=== PATIENT | male | born 1945 | race African-American/Black ===

== ENCOUNTER 2018-04-17 09:53 | Outpatient (CLI) | payer MEDICARE, BC ==
[2018-04-17] MEDS ORDERED: ISOVUE-370 76%-LOCM 1 ML ONE (13:53)
== END 2018-04-17 09:54 | disposition home or self-care (01) ==
LOC: BICCT 09:53
PROVIDERS: ATTEND Internal Medicine Gastroenterology
DX: K70.30 Alcoholic cirrhosis of liver without ascites (principal); K86.3 Pseudocyst of pancreas; R19.7 Diarrhea, unspecified; R06.6 Hiccough; R63.4 Abnormal weight loss; K86.2 Cyst of pancreas; I72.3 Aneurysm of iliac artery; I70.0 Atherosclerosis of aorta; I25.10 Atherosclerotic heart disease of native coronary artery without angina pectoris
CPT/HCPCS: 71260; 74177; 82565

== ENCOUNTER 2018-05-28 15:44 | Inpatient (IN) | payer MEDICARE, BC ==
[2018-05-28 16:23] LABS: #Lymphocytes 1.5 thou/uL (1.20-3.40); #Monocytes 1.5 thou/uL (0.11-0.59); #Neutrophils 8.4 thou/uL (1.40-6.50); %Basophils 0.1 % (0.0-1.0); %Eosinophils 0.3 % (0.0-10.0); %Lymphocytes 13.3 % (21.0-51.0); %Monocytes 13.3 % (0.0-10.0); %Neutrophils 72.9 % (42.0-75.0); Mean Corpuscular HGB CONC 31.4 g/dL (32.0-36.0); Mean Corpuscular Hemoglobin 32.1 pg (27.0-31.0); Platelet Count 358 thou/uL (130-400); RBC Distribution Width 11.5 % (11.5-14.5); Red Blood Cell (RBC) Count 3.12 mill/uL (4.70-6.10); White Blood Cell (WBC) Count 11.5 thou/uL (4.8-10.8)
[2018-05-28] MEDS ORDERED: Pantoprazole 40 MG VIAL ONE (16:25)
[2018-05-28 16:40] LABS: PTT 35.3 SEC (22.9-36.1); Prothrombin Time 12.9 SEC (12.0-14.7)
[2018-05-28 16:47] LABS: ALT (SGPT) 7 U/L (8-55); AST (SGOT) 13 U/L (5-34); Albumin 2.7 g/dL (3.4-4.8); Alkaline Phosphatase 214 U/L (40-150); Anion Gap 11 mmol/L (10-20); BUN (Urea Nitrogen) 26 mg/dL (8.4-25.7); Bilirubin, Total 0.5 mg/dL (0.2-1.2); CK (CPK) 23 U/L (30-200); Calc. Creatinine Clearance 0 mL/min (70-130); Calcium 9.7 mg/dL (7.8-10.44); Carbon Dioxide 24 mmol/L (23-31); Chloride 97 mmol/L (98-107); Estimated GFR-MDRD 57; Globulin 4.2 g/dL (2.4-3.5); Glucose 143 mg/dL (83-110); Lipase 19 U/L (8-78); Potassium 4.4 mmol/L (3.5-5.1); Protein, Total 6.9 g/dL (5.8-8.1); Sodium 128 mmol/L (136-145)
[2018-05-28 16:50] LABS: CKMB 0.8 ng/mL (0-6.6)
[2018-05-28 16:54] LABS: Troponin I 0.706 ng/mL (< 0.028)
[2018-05-28] MEDS ORDERED: Sodium Chloride 0.9% 100 ML ONE (17:36)
[2018-05-28] MEDS ORDERED: Piperacillin/Tazobactam 4.5 GM VIAL ONE (17:36)
--- NOTE | 2018-05-28 18:11 | RAD ---
PORTABLE CHEST ONE VIEW: 05/28/2018 3:57 p.m. HISTORY: Weakness. GI bleed. COMPARISON: 07/18/2017 FINDINGS: The heart size is normal. The aorta is tortuous. Evidence of old granulomatous disease again seen. The lungs are well expanded without lobar consolidation, pneumothoraces, or pleural effusions. IMPRESSION: No radiographic evidence of acute cardiopulmonary process. POS: [facility]
[2018-05-28] MEDS ORDERED: Pantoprazole 80 MG in Sodium Chloride 0.9% 100 ML IVP SCH (18:15)
[2018-05-28] MEDS ORDERED: Acetaminophen 650 MG Suppository PR PRN (18:38)
[2018-05-28] MEDS ORDERED: Nitroglycerin 0.4 MG TAB (25 Tab Bottle) PO PRN (18:38)
[2018-05-28] MEDS ORDERED: Acetaminophen 325 MG TAB PO PRN (18:38)
--- NOTE | 2018-05-28 18:47 | HP ---
PRIMARY CARE PROVIDER: Chrystal Cano M.D. CHIEF COMPLAINT: Generalized weakness. HISTORY OF PRESENT ILLNESS: Mr. Mcgill is a pleasant 72-year-old gentleman who was seen at [facility] on 05/28/2018. He is able to provide some history. His is in the emerge ncy room and is able to provide some collateral history. Over the last week, he has been having progressively worsening generalized weakness. He also reporte dly had black stools over the last week. He refused to go to the emergency room. Today, he finally agreed to see his primary care provider. He was sent to the emergency room from primary care provide r's office. He reports nausea. He denies any abdominal pain. He denies any chest pain. He denies any shortness of breath. REVIEW OF SYSTEMS: All other systems reviewed and found to be negative. PAST MEDICAL HISTORY: Atrial fibrillation, diabetes mellitus, coronary artery disease, COPD, emphyse ma, hypertension, dyslipidemia, depression, hypothyroidism, benign prostate hypertrophy and PCI with stents. He also had a 5 mm nodule in the right lower lobe on CT scan done in 12/2013. PAST SURGICAL HISTORY: PCI with stents and fluid drained from the scrotum. PSYCHIATRIC HISTORY: Anxiety. SOCIAL HISTORY: The patient drinks 1-2 alcoholic drinks a day. He smokes 1-1/2 packs of cigarettes a day. He denies any recreational drug use. ALLERGIES: No known drug allergies. CURRENT MEDICATIONS: Albuterol 2 puffs every 6 hours as needed, amlodipine 2.5 mg daily, atorvastati n 10 mg at bedtime, vitamin B12 500 mcg daily, diclofenac topically every 6 hours as needed, folic ac id 1 mg daily, lisinopril 10 mg daily, magnesium oxide 400 mg 2 times a day, metoprolol tartrate 50 m g 2 times a day, mirtazapine 30 mg at bedtime, pantoprazole 40 mg in the morning, potassium chloride 20 mEq daily, baclofen 10 mg 3 times a day and multivitamins 1 tablet daily. He also takes aspirin 8 1 mg daily. FAMILY HISTORY: His mother of stroke. Father at the age of 97 years from natural causes. CODE STATUS: I discussed his code status. He is FULL CODE. His is the surrogate decision make r. PHYSICAL EXAMINATION: GENERAL: Mr. Mcgill is sleepy, but arousable, not in acute distress. VITAL SIGNS: Blood pressure is 149/88, pulse 96, respiratory rate 23, and oxygen saturation 95% on r oom air. He is afebrile. EYES: No scleral icterus. No conjunctival pallor. ENT: Dry mucosal membranes, no oropharyngeal erythema or exudates. NECK: Supple, nontender, trachea is midline. RESPIRATORY: Accessory muscles of breathing are not active. Chest wall movements are symmetric bila terally. LUNGS: Clear to auscultation without wheeze, rhonchi or crepitations. CARDIOVASCULAR: S1 and S2 are heard, regular. Peripheral pulses palpable. No carotid bruit, no per icardial rub. ABDOMEN: Soft, nontender, bowel sounds are heard, no hepatomegaly, no splenomegaly. NEUROLOGIC: Cranial nerves II-XII intact. SKIN: No rashes or subcutaneous nodules. MUSCULOSKELETAL: Power is 5/5 in all 4 extremities. LYMPHATIC: No cervical lymphadenopathy. PSYCHIATRIC: Normal mood, normal affect, the patient is oriented to person, place, and time. LABORATORY DATA: Ms. Mcgill's labs and investigations were reviewed. I reviewed his electrocardiogram , which shows normal sinus rhythm, no ST changes to suggest an acute coronary syndrome. I also revie wed his chest x-ray, which does not show any pulmonary infiltrates. He has leukocytosis with 11,500 white cells, of which 72% are neutrophils, macrocytic anemia with hemoglobin of 10, last known hemogl obin 8.8 on 06/30/2016, INR 1.0, decreased sodium of 128, normal potassium, elevated blood urea nitro gen of 26, elevated creatinine of 1.47, last known creatinine 1.39 on 06/30/2016, elevated lactic aci d level of 2.8, normal total bilirubin, elevated alkaline phosphatase level of 214, last known alkali ne phosphatase level 220 in 10/2015, elevated troponin I of 0.706 and decreased albumin of 2.7. Lipa se is normal. ASSESSMENT AND PLAN: Mr. Mcgill is a pleasant 72-year-old gentleman who was seen at [facility] on 05/28/2018. His problem list includes: 1. Generalized weakness: Most likely secondary to gastrointestinal blood loss. 2. Upper gastrointestinal bleed. The patient will be admitted to the hospital and started on IV PPI . Gastroenterology service is being consulted by emergency room physician. We will monitor his H&H and transfuse as needed. 3. Elevated troponin: The patient denies any chest pain. Troponin elevation is most likely seconda ry to demand ischemia. Cardiology service is being consulted. We will recheck troponin. The patien t is not receiving anticoagulation because of ongoing gastrointestinal bleed. 4. Hyponatremia: Mild, we will recheck. 5. Chronic kidney disease: Appears to be stable. 6. Dehydration: The patient is clinically dehydrated. We will provide intravenous hydration. 7. Tobacco abuse: The patient has been counseled regarding tobacco cessation. We will start him on nicotine replacement therapy. 8. Hypertension: We will monitor vital signs and titrate antihypertensives as needed. 9. Dyslipidemia: Continue statin. Many thanks for allowing me to participate in your patient's care. Please feel free to contact me wi th any questions or concerns. LEVEL OF RISK: High. LEVEL OF COMPLEXITY: High.
[2018-05-28 19:11] LABS: Bilirubin Negative (Negative); Blood, Urine Negative (Negative); Clarity CLEAR (Clear); Glucose, Urine (Dipstick) Negative (Negative); Leukocyte Large (Negative); Nitrite Negative (Negative); Protein, Urine (Dipstick) Negative (Neg-Trace); Specific Gravity, Urine 1.006 (1.002-1.036); Urobilinogen 0.2 mg/dL (0.2-1.0)
[2018-05-28 19:13] LABS: Bacteria/HPF None Seen HPF (None Seen); Hyaline Casts/LPF 0-3 HYALINE CAST LPF (0-3 Hyaline); Pathc Cast-AUWi Flag 0.29 (0-2.49); RBC/HPF 0-3 HPF (0-3); Squamous Epithelial 0-3 HPF (0-3)
[2018-05-28 19:26] LABS: Transitional Epithelial 0-3 HPF (0-3)
[2018-05-28 19:52] LABS: Hemoglobin 10.1 g/dL (14.0-18.0)
[2018-05-28 21:19] LABS: Lactic Acid 1.5 mmol/L (0.5-2.2)
[2018-05-28 21:28] LABS: Troponin I Less than 0.010 ng/mL (< 0.028)
[2018-05-28] MEDS: Sodium Chloride 0.9% 1,000 ML IV SCH (22:31)
[2018-05-28] MEDS: Nicotine 21 MG PATCH TD SCH (22:32)
[2018-05-28 22:46] VITALS: BMI 17.4
--- NOTE | 2018-05-29 01:48 | CON ---
DATE OF CONSULTATION: 05/31/2018 REASON FOR CONSULTATION: Melena. HISTORY OF PRESENT ILLNESS: Mr. Mcgill is a 72-year-old gentleman, who is seeing Dr. Peralta in the offic e on and off for several years. He had his last colonoscopy in 2009, which was normal. He had an EG D in 2015 at the [facility] for hematemesis and he had severe LA grade D esophagi tis with biopsies showing just acute inflammation. More recently in 03/2016, followed up in the offi ce and it was noted that he had a CT with possible pancreatic pseudocyst. Apparently, he had really cut back on drinking at that time. More recently in April of this year, he was seen by Dr. Peralta wit h regard to weight loss of 9 pounds in 11 months. He reported loss of appetite. He was still taking baclofen for hiccups and which really helped that. He was moving bowel movements every 1-2 days, wh ich were loose and he was taking a lot of magnesium oxide, he was drinking bourbon daily still. At t hat time, he had a CT scan ordered abdomen and pelvis and chest, which showed 2-cm pancreatic cystic structure, which was felt to be a pseudocyst in the tail of pancreas region. Dr. Peralta discussed all with the patient and his and they are still going to follow up in a few more months. In any brianda nt, this hospitalization has brought in by the fact that he had to the emergency room just feeling we ak, generally had been having black stools over the past week. He continued to really not be able to eat with some similar complaints when we had him in the office back in April, but he refused to go to the emergency room today. Finally, the states he agreed to see his primary doctor, Dr. Jerome cotto nd from there, he was sent to the emergency room. He reports some nausea, but no vomiting, no hemate mesis, no abdominal pain, no chest pain or shortness of breath, just fairly listless and does want to eat. He has had no diarrhea. He denies any fever or chills. His confirms most history. When asked about drinking, she states he really does not drink much anymore, but apparently on further qu estioning, that is ended up being 1-2 bourbons a day, still smokes a pack to a pack and half a day. REVIEW OF SYSTEMS: Positive for weight loss. Positive for loss of appetite. Positive for melena. Negative for hematochezia. Negative for hematemesis. Negative for nausea. Positive history of hicc ups. PAST MEDICAL HISTORY: Atrial fibrillation, diabetes, coronary artery disease with previous balloon a ngioplasty with no stents, COPD, emphysema, hypertension, dyslipidemia, depression, hypothyroidism, B PH, 5-mm nodule in the right lower lung field in 2013 and apparently this was followed. PAST SURGICAL HISTORY: Includes PCI with stents and previously he had some scrotal surgery. SOCIAL HISTORY: The patient drinks 1-2 drinks per week, smokes as noted above. Does not use drugs. ALLERGIES: None known. MEDICATIONS: Albuterol, amlodipine, atorvastatin, vitamin B12, diclofenac topical, folic acid, lisin opril, magnesium oxide 2 a day, metoprolol, mirtazapine, Protonix 40 mg daily, Protonix, potassium ch loride 20 mEq daily, baclofen, multivitamin, and aspirin 81 mg a day. FAMILY HISTORY: Mother of stroke. Father at age 97 from natural causes. He has been seen by the hospitalist and he has been started on normal saline at 70 an hour, Protonix drip has been ordered. Echo has been ordered. EKG has been ordered. PHYSICAL EXAMINATION: GENERAL: The patient is cachectic 72-year-old man. He is in the emergency room. He is poorly pe[place] shed and cachectic, but he is in no distress. VITAL SIGNS: Blood pressure 149/88, pulse 96, respiration 23, O2 sat 95% on room air. HEENT: He is nonicteric. LUNGS: Decreased breath sounds in the bases. Chest movement symmetrical. No wheezes. HEART: Regular rate and rhythm. ABDOMEN: Soft, nontender, slightly doughy. No palpable hepatosplenomegaly. Possibly some fluid wav e. No shifting dullness. LYMPHATICS: No cervical or supraclavicular adenopathy. EXTREMITIES: No muscle wasting. LABORATORY STUDIES: Stool occult blood positive. Hemoglobin is 10; it was 8.82 in 2016. Labs from the [facility] in 02/2018 showed normal LFTs except for an AST of 46, alkaline phosphatase of 193 and hemoglo bin is 14 with an MCV of 101 at that time. Hemoglobin is now 10, white count 11.5, platelet count 35 8. INR 1. Sodium 128, potassium 4.4, BUN 26, creatinine 1.47, glucose 143. Lactic acid 2.8, calciu m 9.7, AST 13, ALT 7, alkaline phosphatase 214. Troponin 0.706. Albumin 2.7, protein 6.9. Last alp morrison-fetoprotein was 2.3 in 2016. CA19-9 of 405 in 2016. ASSESSMENT: This is a 72-year-old gentleman with some history of liver disease, possible cirrhosis b y clinic notes, who has been in the hospital floor in 2016 was severe reflux esophagitis. He i s on PPIs and is coming more recently with weight loss and failure to thrive. He had a CT scan of chest and abdomen in the office in April, which showed a 2-cm cystic structure in the tail of the pancreas and was felt to be pseudocyst and is being followed clinically. Otherwise, there were no si gnificant findings atherosclerotic vessel disease. Now, he comes in with report of melena and a hemoglobin of 10. Baseline in the summer had been 14,. His liver enzymes are fairly stable. He s hows no signs of acute bleeding, but has a positive occult blood test. He did have a normal colonosc opy in 2009. RECOMMENDATIONS: 1. Agree with IV PPI and IV fluids. 2. N.p.o. 3. Consent for EGD and will plan for EGD tomorrow.
[2018-05-29 05:49] LABS: Lactic Acid 0.7 mmol/L (0.5-2.2)
[2018-05-29 05:53] LABS: Anion Gap 10 mmol/L (10-20); BUN (Urea Nitrogen) 20 mg/dL (8.4-25.7); Calc. Creatinine Clearance 55 mL/min (70-130); Calcium 8.7 mg/dL (7.8-10.44); Carbon Dioxide 20 mmol/L (23-31); Chloride 106 mmol/L (98-107); Estimated GFR-MDRD 83; Glucose 95 mg/dL (83-110); Potassium 4.2 mmol/L (3.5-5.1); Sodium 132 mmol/L (136-145)
[2018-05-29 06:08] LABS: Band 3 % (5-11); Hemoglobin 8.3 g/dL (14.0-18.0); Lymphocytes 11 % (21-51); MDiff Complete? YES; Mean Corpuscular Hemoglobin 33.8 pg (27.0-31.0); Mean Platelet Volume 7.4 fL (7.4-10.4); Monocytes 12 % (0-10); Neutrophil 74 % (42-75); PLT Morphology Comment Appears Adequate; Platelet Count 337 thou/uL (130-400); RBC Distribution Width 11.2 % (11.5-14.5); Red Blood Cell (RBC) Count 2.45 mill/uL (4.70-6.10); White Blood Cell (WBC) Count 11.3 thou/uL (4.8-10.8)
[2018-05-29] MEDS: Pantoprazole 80 MG in Sodium Chloride 0.9% 100 ML IVP SCH ×2 (08:26→17:11)
[2018-05-29] MEDS ORDERED: Promethazine HCl 25 MG/ML VIAL IM PRN (10:20)
[2018-05-29] MEDS ORDERED: Ondansetron HCl/PF 4 MG/2 ML Vial IVP PRN (10:20)
[2018-05-29] MEDS ORDERED: Promethazine HCl 25 MG/ML VIAL SLOW IVP PRN (10:20)
--- NOTE | 2018-05-29 11:04 | OP ---
DATE OF PROCEDURE: 05/29/2018. PROCEDURE PERFORMED: Esophagogastroduodenoscopy with control of hemorrhage. INDICATION FOR PROCEDURE: Anemia, melena. DESCRIPTION OF PROCEDURE: After the risks and benefits of the procedure were explained to the patien t including risk of bleeding, infection, perforation, reactions to anesthesia, aspiration and/or pain , informed consent was obtained. The patient was then taken to the endoscopy suite where deep sedati on was administered via propofol and anesthesia support. Once adequate sedation was achieved, the st andard gastroscope was introduced into the mouth with intubation of the esophagus, stomach and the pr oximal small intestine with the findings listed below. The patient tolerated the procedure well with no immediate perioperative complications. FINDINGS: Esophagus: Normal appearing mucosa was seen in the proximal esophagus; however, circumferential ulce ration and increased friability with oozing of blood was seen in the mid and distal esophagus extendi ng from 30 cm to 39 cm past the incisors. There was no evidence of mass lesions in this particular r egion, nor was there evidence of stricture or stenoses in the distal esophagus. The diaphragmatic pi nch was well seen at 42 cm while the GE junction was seen at 39 cm, denoting a 3 cm hiatal hernia. Stomach: Normal appearing mucosa was seen in the gastric cardia, body, antrum, incisura and greater curvature. Mild nodularity to the gastric mucosa was seen in the fundus without any evidence of poly poid features or overt mass formation. There was no evidence of erosions, ulcerations, mass lesions or active/recent bleeding seen throughout the entire stomach. Duodenum: A 7-8 mm superficial ulceration with an adherent clot was seen in the duodenal bulb along the anterior wall without any evidence of active bleeding; however, given the adherent clot and that I was unable to remove with aggressive irrigation and suctioning, bipolar cautery was applied to this region with good hemostasis achieved. There was no evidence of bleeding at the completion of this m aneuver. There was also another smaller more clean based ulceration seen further in the duodenal bul b, near the duodenal sweep, but did not exhibit any cratering or high risk stigmata of bleeding. Nor mal appearing mucosa was then seen in the second portion of the duodenum with mild erosions in the du odenal sweep, but no overt ulcerations seen there. There was no evidence of mass lesions or active/r ecent bleeding seen during this portion of the exam. IMPRESSION: 1. LA grade D reflux mediated erosive esophagitis (severe) extending from 30-39 cm with significant ulceration. 2. A 3 cm hiatal hernia, which could contribute to #1. 3. Mild nodularity of the gastric fundus consistent with PPI use. 4. A 7-8 mm duodenal bulb ulceration with adherent clot, status post bipolar cautery with good hemos tasis achieved. 5. Smaller 3-4 mm clean based ulceration also seen in the duodenal bulb without any high risk stigma ta (not intervened upon during this examination). RECOMMENDATIONS: 1. We would continue to trend H&H and transfuse as necessary to maintain an H&H of 03/24. 2. We would continue to monitor clinically for signs of active gastrointestinal bleeding. 3. We would continue the patient on PPI, but can be transferred to pantoprazole 40 mg b.i.d. 4. We would maintain strict antireflux precautions while inpatient. 5. Highly recommend cessation of alcohol as an outpatient. 6. We would consider holding the patient in the hospital for the next 48 hours given increased risk of gastrointestinal bleeding from the duodenal bulb ulceration. 7. We would refrain from administration of any NSAIDs during this admission. 8. We would obtain an H. pylori serology and treat if positive.
[2018-05-29] MEDS: Sodium Chloride 0.9% 1,000 ML IV SCH (11:57)
--- NOTE | 2018-05-29 13:07 | PQF ---
CLINICAL DOCUMENTATION IMPROVEMENT CLARIFICATION FORM: ICD-10 Updated PLEASE DO AN ADDENDUM TO THE PROGRESS NOTE WITH ANY DOCUMENTATION UPDATES OR ADDITIONS AND CARRY THROUGH TO DC SUMMARY. THANK YOU. Date: 05/29 ATTN: DR. DUKE LI Please exercise your independent, professional judgment in responding to the clarification form. Clinical indicators are provided on the bottom of this form for your review. Please check appropriate box(s): [ ] Protein Calorie Malnutrition: [ ] Mild [ x ] Moderate [ ] Severe [ ] Other Malnutrition (please specify) __ [ ] Underweight without malnutrition [ ] Cachexia [ ] Other diagnosis [ ] Unable to determine CLINICAL INDICATORS - SIGNS / SYMPTOMS / LABS BMI: 17.4 GI CONSULT DOCUMENTATION 05/28: HX PRESENT ILLNESS: ...IN APR OF THIS YEAR, HE WAS SEEN BY DR. PETERSON W/REGARD TO WEIGHT LOSS OF 9 LBS IN 11 MONTHS. HE REPORTED LOSS OF APPETITE. REVIEW OF SYSTEMS: POSTIVE FOR WEIGHT LOSS. POSITIVE FOR LOSS OF APPETITE. PHYSICAL EXAM: GENERAL: THE PATIENT IS CACHECTIC. HE IS POORLY NOURISHED ASSISTANT PROSECUTING ATTORNEY ASSESSMENT 05/29: TRIGGERED FOR LOW BMI, WEIGHT LOSS, DECREASED PO INTAKE; FAMILY STATED THE PATIENT HAS HAD POOR PO INTAKE X SEVERAL MONTHS. ...HE HAS LOST A LOT OF WEIGHT, BUT THEY WERE NOT SURE ABOUT THE QUANTITY OR TIMELINE. THEY REPORTED SEVERAL YEARS AGO, HE WEIGHTED 219 LBS & HAS STEADILY DROPPED DOWN TO HIS CURRENT WEIGHT. THEY THINK HE MAY HAVE WEIGHTED [address] WEIGHED PATIENT USING THE BEDSCALE & WEIGHT WAS NOTED TO 135.8 LBS APPROXIMATE 3.5% WEIGHT DEICER INSPECTOR PNEUMATIC THE PAST 6 MONTHS, 38% OVER AN UNKNOWN TIME PHYSICAL FINDINGS: MODERATE TEMPORAL MUSCLE WASTING OBSERVED NUTRITION DIAGNOSIS: MALNUTRITION R/T COPD & POSSIBLE CIRRHOSIS EVIDENCED BY DECREASED PO INTAKE FOR SEVERAL MONTHS W/MODERATE MUSCLE WASTING OBSERVED RISK FACTORS: ONGOING TOBACCO ABUSE DAILY ALCOHOL INTAKE DECREASED PO INTAKE FAILURE TO THRIVE TREATMENT: ASSISTANT PROSECUTING ATTORNEY ASSESSMENT GI CONSULT Moderate Malnutrition (in acute illness) Energy Intake: <75% of estimated energy requirement for > 7 days Weight Loss: 1-2%/1 week; 5%/ 1 month; 7.5%/3 months Other: mild body fat loss; mild muscle mass loss; mild fluid accumulation; Severe Malnutrition (in acute illness) Energy Intake: < 50% of estimated energy requirement for > 5 days Weight Loss: >1-2%/1 week; >5%/1 month; >7.5%/3 months Other: moderate body fat loss; moderate muscle mass loss; moderate- severe fluid accumulation; measurably reduced certified ophthalmic assistant strength Moderate Malnutrition (in chronic illness) Energy Intake: <75% of estimated energy requirement for >1 month Weight Loss: 5%/1 month; 7.5%/3 months; 10%/6 months; 20%/1 year Other: mild body fat loss; mild muscle mass loss; mild fluid accumulation Severe Malnutrition (in chronic illness) Energy Intake: <75% of estimated energy requirement for >1 month Weight Loss: >5%/1 month; >7.5%/3 months; >10%/6 months; >20%/1 year Other: severe body fat loss; severe muscle mass loss; severe fluid accumulation; measurably reduced certified ophthalmic assistant strength THANK YOU! Sindy (This form is maintained as a part of the permanent medical record) 2014 [employer]. All Rights Reserved Sindy Dhillon RN, BSN [email or web address] Office: [phone] [facility]
[2018-05-29] MEDS ORDERED: Lidocaine 1% PF 5 ML VIAL ONE (14:53)
[2018-05-29] MEDS ORDERED: PROPOFOL 200 MG/20 ML VIAL ONE (14:53)
--- NOTE | 2018-05-29 17:22 | PDOC.PN ---
- Subjective Encounter Start Date: 05/29/18 Encounter Start Time: 11:30 Subjective: pt up in bed family at bedside - Objective Resuscitation Status: Resuscitation Status FULL:Full Resuscitation Vital Signs & Weight: Vital Signs (12 hours) Temp Pulse Resp BP BP Pulse Ox 05/29/18 17:10 99.0 F 103 H 15 99/66 99 05/29/18 11:16 97.6 F 105 H 16 132/72 96 05/29/18 08:32 99.1 F 110 H 16 124/75 95 05/29/18 08:30 95 Weight Admit Weight 137 lb Weight 135 lb 12.8 oz I&O: 05/28/18 05/29/18 05/30/18 06:59 06:59 06:59 Intake Total 820 812.7 Output Total 470 300 Balance 350 512.7 Result Diagrams: 05/29/18 05:05 05/29/18 05:05 Additional Labs: Accuchecks 05/29/18 05:34 POC Glucose 112 H Phys Exam - Physical Examination Neck: no nodes, no JVD, supple, full ROM Respiratory: no wheezing, no rales, no rhonchi, wheezing present, clear to auscultation bilateral Cardiovascular: RRR, no significant murmur, no rub, gallop, irregular Gastrointestinal: soft, non-tender, no distention, positive bowel sounds Musculoskeletal: no edema, pulses present, edema present Dx/Plan (1) Melena Code(s): K92.1 - MELENA Status: Acute (2) Weight loss Status: Acute (3) Acute esophagitis Code(s): K20.9 - ESOPHAGITIS, UNSPECIFIED Status: Acute (4) Duodenal ulcer Status: Acute - Plan pt's hh stable, he wants to be a full code -: will get speech to see pt for concerns for aspiration pna -: will continue ppi * . Review of Systems - Review of Systems ENT: negative: Ear Pain, Ear Discharge, Nose Pain, Nose Discharge, Nose Congestion, Mouth Pain, Mouth Swelling, Throat Pain, Throat Swelling, Other Respiratory: negative: Cough, Dry, Shortness of Breath, Hemoptysis, SOB with Excertion, Pleuritic Pain, Sputum, Wheezing Cardiovascular: negative: chest pain, palpitations, orthopnea, paroxysmal nocturnal dyspnea, edema, light headedness, other Gastrointestinal: negative: Nausea, Vomiting, Abdominal Pain, Diarrhea, Constipation, Melena, Hematochezia, Other Genitourinary: negative: Dysuria, Frequency, Incontinence, Hematuria, Retention , Other - Medications/Allergies Allergies/Adverse Reactions: Allergies Allergy/AdvReac Type Severity Reaction Status Date / Time No Known Drug Allergies Allergy Verified 10/14/13 23:52 Medications: Current Medications Acetaminophen (Tylenol) 650 mg PO Q4H PRN PRN Reason: Headache/Fever or Pain Acetaminophen (Tylenol) 650 mg [place] Q4H PRN PRN Reason: Headache/Fever or Pain Atorvastatin Calcium (Lipitor) 10 mg PO HS JULIA Folic Acid (Folvite) 1 mg PO DAILY JULIA Sodium Chloride (Normal Saline 0.9%) 1,000 mls @ 70 mls/hr IV .[id number] [facility] Last Admin: 05/29/18 11:57 Dose: 1,000 mls Pantoprazole Sodium 80 mg/ (Sodium Chloride) 100 mls @ 10 mls/hr IVP INF [facility] Last Admin: 05/29/18 17:11 Dose: 100 mls Levothyroxine Sodium (Synthroid) 25 mcg PO 0600 JULIA Mirtazapine (Remeron Soltab) 30 mg PO HS [facility] Nicotine (Nicoderm Patch) 21 mg TD Q24HR [facility] Last Admin: 05/28/18 22:32 Dose: 21 mg Nitroglycerin (Nitrostat) 0.4 mg PO Q5MIN PRN PRN Reason: Chest Pain Sodium Chloride (Flush - Normal Saline) 10 ml IVF Q12HR [facility] Last Admin: 05/29/18 11:57 Dose: Not Given Sodium Chloride (Flush - Normal Saline) 10 ml IVF PRN PRN PRN Reason: Saline Flush
[2018-05-29 18:28] LABS: Hemoglobin 8.8 g/dL (14.0-18.0)
--- NOTE | 2018-05-29 18:35 | CON ---
DATE OF CONSULTATION: 05/29/2018 CARDIOLOGY CONSULTATION REASON FOR CONSULTATION: Elevated troponins. HISTORY OF PRESENT ILLNESS: Mr. Mcgill is a very pleasant 72-year-old gentleman who c omes to the hospital for melena. He was diagnosed with upper GI bleed and taken to the endoscopy lab where he was found to have an ulcer in the duodenum with stigmata of bleeding with a blood clot on t op of it. This was cauterized successfully. He has a history of liver disease with possible cirrhos is from alcohol use and has severe reflux esophagitis on chronic PPIs as well. He was admitted for t his and the troponins were drawn and initial troponin was 0.7. Second troponin was actually undetect able. Cardiology has been consulted for this. PAST MEDICAL HISTORY: 1. Coronary artery disease in the past. 2. Chronic obstructive pulmonary disease with emphysema. 3. History of a lung nodule. 4. Hypertension. 5. Type 2 diabetes. 6. Hyperlipidemia. 7. Depression. 8. Hypothyroidism. 9. BPH. 10. Left heart catheterization as far as I could tell was in [address] Amezcua. He had a 70% sten osis of the second diagonal and 50% LAD stenosis 21 years ago. Nonobstructive disease in the left ci rcumflex and RCA. Apparently, he might have had stents placed by Dr. Crawford more recently. PAST SURGICAL HISTORY: Catheterization as above. OUTPATIENT MEDICATIONS: 1. Potassium chloride 20 mEq a day. 2. Protonix 40 mg a day. 3. Multivitamin daily. 4. Remeron. 5. Metoprolol 50 mg b.i.d. 6. Magnesium oxide 400 mg b.i.d. 7. Lisinopril 10 mg a day. 8. Levothyroxine 25 mcg a day. 9. Folic acid 1 mg a day. 10. Diclofenac gel. 11. Vitamin B12. 12. Baclofen 10 mg p.o. t.i.d. 13. Atorvastatin 10 mg at bedtime. 14. Amlodipine 5 mg b.i.d. 15. Albuterol inhaler 90 mcg inhalation q.6. hours p.r.n. ALLERGIES: No known drug allergies. SOCIAL HISTORY: Smokes a pack a day, drinks everyday. [place] [employer]. No drug use. REVIEW OF SYSTEMS: A 12-point review of systems was done and is all negative unless stated in the hi story of present illness. FAMILY HISTORY: Mother of stroke. Father at age 99. PHYSICAL EXAMINATION: VITAL SIGNS: Temperature 99.0, pulse 103, respiration rate 15, satting 99% on room air, blood pressu re 99/66. GENERAL: Awake, alert, oriented x3, in no distress. HEENT: Normocephalic, atraumatic. NECK: Supple. LUNGS: Clear. CARDIOVASCULAR: S1, S2. No S3, S4. ABDOMEN: Soft, positive bowel sounds. EXTREMITIES: No edema. SKIN: Warm and dry. LABORATORY WORK: Reviewed. CBC with a white count of 11, hemoglobin from 10 down to 8.3, platelet c ount of 337,000. Coags were unremarkable. Chemistries were unremarkable except for a sodium of 132. Troponin as above was 0.7 and then undetectable. UA with large leukocyte esterase and 11-20 white cells, otherwise negative. Blood cultures were negative so far at one day. Stool cultures pending and urine culture is negative so far. Endoscopy reports were reviewed. ASSESSMENT: 1. Acute upper gastrointestinal bleed. 2. Non-ST elevation myocardial infarction: Likely demand ischemia from bleeding. Contraindicated t o do any anticoagulation at this time or any interventional procedures given his acute gastrointestin al bleed. 3. Alcohol use. 4. Possible liver cirrhosis. PLAN: 1. Continue conservative therapy. 2. Continue treatment of his GI bleeding as this is likely the cause of all his problems today. He is not having any ischemic symptoms. 3. No plan on any risk stratification with stress testing or heart catheterization. Contraindicated to do any anticoagulation at this time including aspirin. 4. We will do an echocardiogram. 5. We will follow.
[2018-05-29] MEDS: Diltiazem HCl 125 MG, Admixture Fee 1 EACH in Sodium Chloride 0.9% 100 ML IVPB SCH (20:35)
[2018-05-29] MEDS: Mirtazapine 30 MG Soltab PO SCH (21:58)
[2018-05-29] MEDS: Atorvastatin Calcium 10 MG TAB PO SCH (21:59)
[2018-05-29] MEDS: Nicotine 21 MG PATCH TD SCH (22:00)
[2018-05-30] MEDS: Sodium Chloride 0.9% 1,000 ML IV SCH (01:50)
[2018-05-30] MEDS: Pantoprazole 80 MG in Sodium Chloride 0.9% 100 ML IVP SCH (02:13)
[2018-05-30 06:17] LABS: Anion Gap 10 mmol/L (10-20); BUN (Urea Nitrogen) 13 mg/dL (8.4-25.7); Calc. Creatinine Clearance 61 mL/min (70-130); Calcium 8.6 mg/dL (7.8-10.44); Carbon Dioxide 21 mmol/L (23-31); Chloride 108 mmol/L (98-107); Estimated GFR-MDRD Greater than 90; Glucose 94 mg/dL (83-110); Potassium 3.5 mmol/L (3.5-5.1); Sodium 135 mmol/L (136-145)
[2018-05-30 06:31] LABS: Eosinophils 1 % (0-10); Hemoglobin 8.4 g/dL (14.0-18.0); Hypochromia SLIGHT = 6-15 cells (100X) (0-5/hpf); Lymphocytes 20 % (21-51); MDiff Complete? YES; Mean Corpuscular HGB CONC 32.9 g/dL (32.0-36.0); Mean Corpuscular Hemoglobin 33.8 pg (27.0-31.0); Monocytes 6 % (0-10); Neutrophil 73 % (42-75); PLT Morphology Comment Appears Adequate; Platelet Count 367 thou/uL (130-400); RBC Distribution Width 11.3 % (11.5-14.5); Red Blood Cell (RBC) Count 2.49 mill/uL (4.70-6.10); White Blood Cell (WBC) Count 8.3 thou/uL (4.8-10.8)
[2018-05-30] MEDS: Levothyroxine Sodium 25 MCG TAB PO SCH (07:10)
[2018-05-30] MEDS: Diltiazem HCl 125 MG, Admixture Fee 1 EACH in Sodium Chloride 0.9% 100 ML IVPB SCH (07:32)
[2018-05-30] MEDS: Folic Acid 1 MG TAB PO SCH (08:22)
[2018-05-30] MEDS ORDERED: PROVENTIL INHALER 6.7 G (200 INHALATIONS) INH PRN (10:45)
[2018-05-30] MEDS ORDERED: Metoprolol Tartrate 50 MG TAB PO SCH ×2 (12:00→21:00)
--- NOTE | 2018-05-30 15:18 | RAD ---
MODIFIED BARIUM SWALLOW IN PRESENCE OF SPEECH THERAPIST: Date: 05/30/18 HISTORY: 72-year-old male with dysphagia, unspecified; feeding difficulties; weight loss. FINDINGS/IMPRESSION: No aspiration, laryngeal penetration, or persistent pooling of contrast in the piriform sinuses or va llecula seen. Please see recommendations of the speech therapist for further management. Fluoro Time: 2 minutes, dose 0.789 Gy*cm^2. POS: [facility]
[2018-05-30] MEDS: Baclofen 10 MG TAB PO SCH ×2 (16:01→21:27)
--- NOTE | 2018-05-30 16:41 | EKG ---
Test Reason : Blood Pressure : / mmHG Vent. Rate : 145 BPM Atrial Rate : 127 BPM P-R Int : 000 ms QRS Dur : 066 ms QT Int : 262 ms P-R-T Axes : 000 -06 090 degrees QTc Int : 406 ms Atrial fibrillation with rapid ventricular response with premature ventricular or aberrantly conducte d complexes Low voltage QRS Nonspecific T wave abnormality Abnormal ECG When compared with ECG of 28-MAY-2018 15:52, (Unconfirmed) Atrial fibrillation has replaced Sinus rhythm Vent. rate has increased BY 54 BPM Criteria for Septal infarct are no longer Present Confirmed by KATTY CELESTIN, SReinaldo ([id number]) on 05/30/2018 4:41:18 PM Referred By: MENA Confirmed By:DR. Bernie ALANIZ MD
--- NOTE | 2018-05-30 18:22 | PDOC.CTH ---
Cardiology Progress Note - Subjective He went into rapid afib overnight. HR in the 140's Started on a Cardizem drip and converted to sinus. He did not feel this, he denies any chest pain, tightness, pressure, SOB. - Objective Vital Signs Temp Pulse Resp BP Pulse Ox 05/30/18 16:04 98 F 81 16 124/63 97 05/30/18 12:00 98.8 F 100 16 113/67 93 L 05/30/18 08:00 93 L 05/30/18 07:59 98 F 100 16 107/62 93 L Admit Weight 137 lb Weight 140 lb 05/29/18 05/30/18 05/31/18 06:59 06:59 06:59 Intake Total 820 2112.7 Output Total 470 1200 Balance 350 912.7 - Physical Examination General/Neuro: alert & oriented x3, NAD Neck: no JVD present Lungs: CTA, unlabored respirations Heart: RRR Abdomen: NT/ND Extremities: other: (no edema.) - Telemetry Telemetry Rhythm: Afib --> NSR - Labs Result Diagrams: 05/30/18 05:26 05/30/18 05:26 Troponin/CKMB CK-MB (CK-2) 0.8 ng/mL (0-6.6) 05/28/18 16:10 Troponin I Less than 0.010 ng/mL (< 0.028) 05/28/18 20:56 - Assessment/Plan 1. NSTEMI, demand ischemia 2. UGIB 3. Afib RVR, paroxysmal PLAN; - Normal LV function on echo today. - Not a candidate for any anticoagulation or antiplatelet for stroke prophylaxis due to G bleeding. - Will address need for aspirin as an outpatient once uilcers healed. - He may be a candidate for a Watchman or a Lariat if he becomes compliant with his care. - Stop diltiazem drip and switch to PO Metoprolol.
--- NOTE | 2018-05-30 19:55 | PRG ---
DATE OF SERVICE: 05/30/2018 SUBJECTIVE: Mr. Mcgill is without any real complaints. No further bleeding. He is tolerating diet. He had a modified barium swallow today. It was abnormal, but apparently was not high risk for aspira tion. OBJECTIVE: VITAL SIGNS: Temperature 98, pulse 81, blood pressure 124/63. ABDOMEN: Soft, nontender. LUNGS: Clear. HEART: Regular rate and rhythm without clicks or murmurs. LABORATORY DATA: White count 8.3, hemoglobin 8.4, platelet count 367. Sodium is 135, potassium 3.5, BUN and creatinine are . ASSESSMENT: Gastrointestinal bleeding secondary to severe reflux esophagitis, gastritis, duodenitis. The patient had EGD and some cautery yesterday. RECOMMENDATIONS: Avoid NSAIDs. The patient need to stop drinking alcohol. Continue PPI. We will lee gillis.
[2018-05-30] MEDS: Mirtazapine 30 MG Soltab PO SCH (21:27)
[2018-05-30] MEDS: Metoprolol Tartrate 50 MG TAB PO SCH (21:27)
[2018-05-30] MEDS: Magnesium Oxide 400 MG TAB PO SCH (21:27)
[2018-05-30] MEDS: Nicotine 21 MG PATCH TD SCH (21:27)
[2018-05-30] MEDS: Atorvastatin Calcium 10 MG TAB PO SCH (21:27)
[2018-05-31] MEDS: Levothyroxine Sodium 25 MCG TAB PO SCH (05:59)
[2018-05-31] MEDS: Magnesium Oxide 400 MG TAB PO SCH ×2 (08:17→20:57)
[2018-05-31] MEDS: Metoprolol Tartrate 50 MG TAB PO SCH ×2 (08:17→20:57)
[2018-05-31] MEDS: Folic Acid 1 MG TAB PO SCH (08:17)
[2018-05-31] MEDS: Multivit, Therapeutic 1 TAB PO SCH (08:17)
[2018-05-31] MEDS: Baclofen 10 MG TAB PO SCH ×3 (08:17→20:57)
--- NOTE | 2018-05-31 13:54 | CT ---
CT OF BRAIN PERFORMED WITHOUT CONTRAST ENHANCEMENT: History: Left sided facial droop. Comparison: 06-26-16 FINDINGS: There is moderate ventricular and sulcal prominence. There is decreased attenuation of the periventri cular white matter consistent with some chronic white matter change. No signs of intracerebral hemorr pablo or extraaxial fluid collections. Mastoid air cells and visualized sinuses are clear. IMPRESSION: No acute intracranial abnormalities. POS: [facility]
--- NOTE | 2018-05-31 15:25 | PDOC.PN ---
- Subjective Encounter Start Date: 05/31/18 Encounter Start Time: 10:30 Subjective: pt up in bed no complains -: PT noticed mild droop in pt's left lower lip - Objective Resuscitation Status: Resuscitation Status FULL:Full Resuscitation Vital Signs & Weight: Vital Signs (12 hours) Temp Pulse Resp BP Pulse Ox 05/31/18 12:53 96.6 F L 81 14 126/68 96 05/31/18 07:35 97 05/31/18 07:32 99.5 F 99 16 122/76 97 05/31/18 04:00 99.4 F 93 19 132/74 95 Weight Admit Weight 137 lb Weight 141 lb 3.2 oz I&O: 05/30/18 05/31/18 06/01/18 06:59 06:59 06:59 Intake Total 2112.7 Output Total 1200 Balance 912.7 Result Diagrams: 05/30/18 05:26 05/30/18 05:26 Additional Labs: Accuchecks 05/31/18 05/31/18 05/30/18 11:09 05:43 20:42 POC Glucose 105 86 105 05/30/18 17:02 POC Glucose 108 Phys Exam - Physical Examination Neck: no nodes, no JVD, supple, full ROM Respiratory: no wheezing, no rales, no rhonchi, wheezing present, clear to auscultation bilateral Cardiovascular: RRR, no significant murmur, no rub, gallop, irregular Gastrointestinal: soft, non-tender, no distention, positive bowel sounds Musculoskeletal: no edema, pulses present, edema present 5/5 bilateral upper and lower ext strength and sensation intact, -: Mild droop to left lower lip area, pt apperance was unchange Dx/Plan (1) Melena Code(s): K92.1 - MELENA Status: Acute (2) Weight loss Status: Acute (3) Acute esophagitis Code(s): K20.9 - ESOPHAGITIS, UNSPECIFIED Status: Acute (4) Duodenal ulcer Status: Acute - Plan will continue protonix -: pt is on a puree diet -: will get ct brain and cxr -: pt want to go to rehab * . Review of Systems - Review of Systems Respiratory: negative: Cough, Dry, Shortness of Breath, Hemoptysis, SOB with Excertion, Pleuritic Pain, Sputum, Wheezing Cardiovascular: negative: chest pain, palpitations, orthopnea, paroxysmal nocturnal dyspnea, edema, light headedness, other Gastrointestinal: negative: Nausea, Vomiting, Abdominal Pain, Diarrhea, Constipation, Melena, Hematochezia, Other Genitourinary: negative: Dysuria, Frequency, Incontinence, Hematuria, Retention , Other - Medications/Allergies Allergies/Adverse Reactions: Allergies Allergy/AdvReac Type Severity Reaction Status Date / Time No Known Drug Allergies Allergy Verified 10/14/13 23:52 Medications: Current Medications Acetaminophen (Tylenol) 650 mg PO Q4H PRN PRN Reason: Headache/Fever or Pain Last Admin: 05/31/18 08:17 Dose: 650 mg Acetaminophen (Tylenol) 650 mg SD Q4H PRN PRN Reason: Headache/Fever or Pain Albuterol Sulfate (Proventil Hfa) 1 puff INH Q6H PRN PRN Reason: SOB &/or Wheezing Atorvastatin Calcium (Lipitor) 10 mg PO [facility] Last Admin: 05/30/18 21:27 Dose: 10 mg Baclofen (Lioresal) 10 mg PO TID [facility] Last Admin: 05/31/18 08:17 Dose: 10 mg Folic Acid (Folvite) 1 mg PO DAILY [facility] Last Admin: 05/31/18 08:17 Dose: 1 mg Levothyroxine Sodium (Synthroid) 25 mcg PO 0600 [facility] Last Admin: 05/31/18 05:59 Dose: 25 mcg Magnesium Oxide (Magnesium Oxide) 400 mg PO BID [facility] Last Admin: 05/31/18 08:17 Dose: 400 mg Metoprolol Tartrate (Lopressor) 50 mg PO BID [facility] Last Admin: 05/31/18 08:17 Dose: 50 mg Mirtazapine (Remeron Soltab) 30 mg PO [facility] Last Admin: 05/30/18 21:27 Dose: 30 mg Multivitamins (Theragran) 1 tab PO DAILY [facility] Last Admin: 05/31/18 08:17 Dose: 1 tab Nicotine (Nicoderm Patch) 21 mg TD Q24HR [facility] Last Admin: 05/30/18 21:27 Dose: 21 mg Nitroglycerin (Nitrostat) 0.4 mg PO Q5MIN PRN PRN Reason: Chest Pain Pantoprazole Sodium (Protonix) 40 mg PO BID [facility] Last Admin: 05/31/18 08:17 Dose: 40 mg Sodium Chloride (Flush - Normal Saline) 10 ml IVF Q12HR [facility] Last Admin: 05/31/18 08:17 Dose: 10 ml Sodium Chloride (Flush - Normal Saline) 10 ml IVF PRN PRN PRN Reason: Saline Flush
--- NOTE | 2018-05-31 15:27 | PDOC.PN ---
- Subjective Encounter Start Date: 05/30/18 Encounter Start Time: 11:30 Subjective: pt up in bed no complains - Objective Resuscitation Status: Resuscitation Status FULL:Full Resuscitation Vital Signs & Weight: Vital Signs (12 hours) Temp Pulse Resp BP Pulse Ox 05/31/18 12:53 96.6 F L 81 14 126/68 96 05/31/18 07:35 97 05/31/18 07:32 99.5 F 99 16 122/76 97 05/31/18 04:00 99.4 F 93 19 132/74 95 Weight Admit Weight 137 lb Weight 141 lb 3.2 oz I&O: 05/30/18 05/31/18 06/01/18 06:59 06:59 06:59 Intake Total 2112.7 Output Total 1200 Balance 912.7 Result Diagrams: 05/30/18 05:26 05/30/18 05:26 Additional Labs: Accuchecks 05/31/18 05/31/18 05/30/18 11:09 05:43 20:42 POC Glucose 105 86 105 05/30/18 17:02 POC Glucose 108 Phys Exam - Physical Examination Respiratory: no wheezing, no rales, no rhonchi, wheezing present, clear to auscultation bilateral Cardiovascular: RRR, no significant murmur, no rub, gallop, irregular Gastrointestinal: soft, non-tender, no distention, positive bowel sounds Musculoskeletal: no edema, pulses present, edema present Dx/Plan (1) Melena Code(s): K92.1 - MELENA Status: Acute (2) Weight loss Status: Acute (3) Acute esophagitis Code(s): K20.9 - ESOPHAGITIS, UNSPECIFIED Status: Acute (4) Duodenal ulcer Status: Acute - Plan will change iv to po protonix -: will advance diet -: will also order PT for pt * . Review of Systems - Review of Systems Respiratory: negative: Cough, Dry, Shortness of Breath, Hemoptysis, SOB with Excertion, Pleuritic Pain, Sputum, Wheezing Cardiovascular: negative: chest pain, palpitations, orthopnea, paroxysmal nocturnal dyspnea, edema, light headedness, other Gastrointestinal: negative: Nausea, Vomiting, Abdominal Pain, Diarrhea, Constipation, Melena, Hematochezia, Other Genitourinary: negative: Dysuria, Frequency, Incontinence, Hematuria, Retention , Other - Medications/Allergies Allergies/Adverse Reactions: Allergies Allergy/AdvReac Type Severity Reaction Status Date / Time No Known Drug Allergies Allergy Verified 10/14/13 23:52 Medications: Current Medications Acetaminophen (Tylenol) 650 mg PO Q4H PRN PRN Reason: Headache/Fever or Pain Last Admin: 05/31/18 08:17 Dose: 650 mg Acetaminophen (Tylenol) 650 mg [place] Q4H PRN PRN Reason: Headache/Fever or Pain Albuterol Sulfate (Proventil Hfa) 1 puff INH Q6H PRN PRN Reason: SOB &/or Wheezing Atorvastatin Calcium (Lipitor) 10 mg PO HS [facility] Last Admin: 05/30/18 21:27 Dose: 10 mg Baclofen (Lioresal) 10 mg PO TID [facility] Last Admin: 05/31/18 08:17 Dose: 10 mg Folic Acid (Folvite) 1 mg PO DAILY [facility] Last Admin: 05/31/18 08:17 Dose: 1 mg Levothyroxine Sodium (Synthroid) 25 mcg PO 0600 [facility] Last Admin: 05/31/18 05:59 Dose: 25 mcg Magnesium Oxide (Magnesium Oxide) 400 mg PO BID [facility] Last Admin: 05/31/18 08:17 Dose: 400 mg Metoprolol Tartrate (Lopressor) 50 mg PO BID [facility] Last Admin: 05/31/18 08:17 Dose: 50 mg Mirtazapine (Remeron Soltab) 30 mg PO HS [facility] Last Admin: 05/30/18 21:27 Dose: 30 mg Multivitamins (Theragran) 1 tab PO DAILY [facility] Last Admin: 05/31/18 08:17 Dose: 1 tab Nicotine (Nicoderm Patch) 21 mg TD Q24HR [facility] Last Admin: 05/30/18 21:27 Dose: 21 mg Nitroglycerin (Nitrostat) 0.4 mg PO Q5MIN PRN PRN Reason: Chest Pain Pantoprazole Sodium (Protonix) 40 mg PO BID [facility] Last Admin: 05/31/18 08:17 Dose: 40 mg Sodium Chloride (Flush - Normal Saline) 10 ml IVF Q12HR [facility] Last Admin: 05/31/18 08:17 Dose: 10 ml Sodium Chloride (Flush - Normal Saline) 10 ml IVF PRN PRN PRN Reason: Saline Flush
[2018-05-31] MEDS ORDERED: Benzonatate 100 MG CAP PO PRN (16:21)
--- NOTE | 2018-05-31 16:59 | PDOC.CTH ---
Cardiology Progress Note - Subjective He is doing well. He has remained in sinus rhythm. No evidence of more active bleeding. - Objective Vital Signs Temp Pulse Resp BP BP Pulse Ox 05/31/18 15:28 98.6 F 86 16 128/74 96 05/31/18 14:05 119/66 05/31/18 12:53 96.6 F L 81 14 126/68 96 05/31/18 07:35 97 05/31/18 07:32 99.5 F 99 16 122/76 97 Admit Weight 137 lb Weight 141 lb 3.2 oz 05/30/18 05/31/18 06/01/18 06:59 06:59 06:59 Intake Total 2112.7 Output Total 1200 Balance 912.7 - Physical Examination General/Neuro: alert & oriented x3, NAD Neck: no JVD present Lungs: CTA, unlabored respirations Heart: RRR Abdomen: NT/ND Extremities: other: (no edema) - Telemetry Telemetry Rhythm: NSR - Labs Result Diagrams: 05/30/18 05:26 05/30/18 05:26 Troponin/CKMB CK-MB (CK-2) 0.8 ng/mL (0-6.6) 05/28/18 16:10 Troponin I Less than 0.010 ng/mL (< 0.028) 05/28/18 20:56 - Assessment/Plan 1. NSTEMI, demand ischemia 2. UGIB 3. Afib RVR, paroxysmal PLAN; - Normal LV function on echo. - Not a candidate for any anticoagulation or anti platelet for stroke prophylaxis due to GI bleeding. - Will address need for aspirin as an outpatient once ulcers healed. - He may be a candidate for a Watchman or a Lariat if he becomes compliant with his care. I discussed with with him and his and they were currently not interested in this for now. - On PO Metoprolol.
--- NOTE | 2018-05-31 18:51 | PRG ---
DATE OF SERVICE: 05/31/2018 REASON FOR CONSULTATION: Melena, anemia. SUBJECTIVE: The patient did well overnight with no acute events or problems. He does not have any c omplaints of abdominal pain nor has he had any bowel movements today consistent with melena nor had a ny bowel movements at all. Currently, denies any nausea, vomiting, fevers, chills, dysphagia, or emily nophagia. He is currently tolerating a diet well without any evidence of coughing or gagging. OBJECTIVE: VITAL SIGNS: Temperature 98.6, pulse 86, blood pressure 128/74, respiratory rate 16, satting 96% on room air. GENERAL: The patient lying in bed in no acute distress. He is alert and oriented x4. CARDIOVASCULAR: Regular rate and rhythm. LUNGS: Clear to auscultation bilaterally. ABDOMEN: Normoactive bowel sounds, soft, nontender, nondistended. EXTREMITIES: No cyanosis, clubbing or edema. LABORATORY DATA: No current labs are available for review. IMAGING DATA: No current GI imaging is available for review. ASSESSMENT AND PLAN: The patient is a 72-year-old male with past medical history of atrial fibrillat ion, diabetes, coronary artery disease, chronic obstructive pulmonary disease/emphysema, hypertension , hyperlipidemia, depression, hypothyroidism, and BPH presenting with decreased H and H and melena wi th a duodenal ulcer as well as LA grade D esophagitis. Melena: The patient initially presented to the hospital with generalized weakness and fatigue, as we ll as black stools over the week prior to admission. On routine labs, he was noted to have a signifi cantly decreased H and H concerning for an upper GI bleed. He subsequently underwent upper endoscopy on 05/29/2018 which showed the presence of LA grade D reflux associated erosive esophagitis with the mild oozing of blood with the passage of the scope as well as a duodenal ulcer with an adherent clot concerning for recent bleeding. The duodenal ulcer was intervened upon with bipolar cautery with go od hemostasis achieved. Since that time, he has not had any further episodes of melena and he had st abilization of his H and H consistent with either slowing or resolution of active bleeding. RECOMMENDATIONS: 1. We would continue to trend H and H and transfuse as necessary to maintain an H and H of 7/21. 2. I would continue to monitor clinically for signs of active gastrointestinal bleeding. 3. We would continue pantoprazole 40 mg b.i.d. given the duodenal ulceration and severe reflux esoph agitis. 4. I would recommend strict antireflux precautions while inpatient. 5. Would refrain from administration of any NSAIDs during this admission. 6. Would follow up on both the H. pylori serologies and serum gastrin as possible source of these ul cerations. 7. If the patient continues to have a stable H and H and no further episodes of melena, could consid er discharge as early as tomorrow with follow up in the GI clinic as an outpatient.
--- NOTE | 2018-05-31 19:21 | RAD ---
RADIOGRAPH CHEST 1 VIEW: 05/31/18 HISTORY: 72-year-old male with dyspnea. FINDINGS: There is hyperinflation of the lungs, consistent with COPD. The thoracic aorta is tortuous and ectat ic. There is no evidence of air space density, pneumothorax, or pulmonary edema. The lateral costop hrenic angles are sharp. There is no cardiomegaly. IMPRESSION: 1) No acute pulmonary findings. 2) Emphysema. 3) Ectasia of thoracic aorta. marifer capellan POS: [facility]
[2018-05-31] MEDS: Nicotine 21 MG PATCH TD SCH (20:56)
[2018-05-31] MEDS: Atorvastatin Calcium 10 MG TAB PO SCH (20:57)
[2018-05-31] MEDS: Mirtazapine 30 MG Soltab PO SCH (20:58)
[2018-06-01] MEDS: Levothyroxine Sodium 25 MCG TAB PO SCH (05:27)
[2018-06-01 06:36] LABS: Hemoglobin 8.8 g/dL (14.0-18.0); Mean Corpuscular HGB CONC 32.8 g/dL (32.0-36.0); Mean Corpuscular Hemoglobin 33.1 pg (27.0-31.0); Mean Platelet Volume 6.6 fL (7.4-10.4); Platelet Count 433 thou/uL (130-400); RBC Distribution Width 11.1 % (11.5-14.5); Red Blood Cell (RBC) Count 2.65 mill/uL (4.70-6.10); White Blood Cell (WBC) Count 8.8 thou/uL (4.8-10.8)
[2018-06-01] MEDS: Magnesium Oxide 400 MG TAB PO SCH (08:23)
[2018-06-01] MEDS: Folic Acid 1 MG TAB PO SCH (08:23)
[2018-06-01] MEDS: Multivit, Therapeutic 1 TAB PO SCH (08:23)
[2018-06-01] MEDS: Baclofen 10 MG TAB PO SCH ×2 (08:23→15:09)
[2018-06-01] MEDS: Metoprolol Tartrate 50 MG TAB PO SCH (08:23)
[2018-06-01 09:12] LABS: Anion Gap 12 mmol/L (10-20); BUN (Urea Nitrogen) 7 mg/dL (8.4-25.7); Calc. Creatinine Clearance 57 mL/min (70-130); Carbon Dioxide 23 mmol/L (23-31); Chloride 105 mmol/L (98-107); Estimated GFR-MDRD 88; Potassium 3.7 mmol/L (3.5-5.1); Sodium 136 mmol/L (136-145)
[2018-06-01 09:13] LABS: Calcium 8.9 mg/dL (7.8-10.44); Glucose 100 mg/dL (83-110)
[2018-06-01 09:25] LABS: Band 3 % (5-11); Lymphocytes 19 % (21-51); MDiff Complete? YES; Monocytes 18 % (0-10); Neutrophil 60 % (42-75); PLT Morphology Comment Appears Increased; Polychromasia SLIGHT = 2-3 cells (100X) (0-2/hpf)
[2018-06-01 15:13] VITALS: BP 121/65; TEMP 98.9
--- NOTE | 2018-06-01 18:26 | PDOC.CTH ---
Cardiology Progress Note - Subjective No new issues. No new concerns. - Objective Vital Signs Temp Pulse Resp BP BP Pulse Ox 06/01/18 15:12 98.9 F 88 18 121/65 96 06/01/18 11:29 98.8 F 87 16 108/70 98 06/01/18 07:36 99.4 F 99 16 124/68 96 Admit Weight 137 lb Weight 135 lb 12.8 oz 05/31/18 06/01/18 06/02/18 06:59 06:59 06:59 Intake Total 240 360 Output Total 200 Balance 40 360 - Physical Examination General/Neuro: alert & oriented x3, NAD Neck: no JVD present Lungs: CTA, unlabored respirations Heart: RRR Abdomen: NT/ND Extremities: other: (no edema) - Telemetry Telemetry Rhythm: NSR - Labs Result Diagrams: 06/01/18 05:37 06/01/18 08:43 Troponin/CKMB CK-MB (CK-2) 0.8 ng/mL (0-6.6) 05/28/18 16:10 Troponin I Less than 0.010 ng/mL (< 0.028) 05/28/18 20:56 - Assessment/Plan 1. NSTEMI, demand ischemia 2. UGIB 3. Afib RVR, paroxysmal PLAN; - Not a candidate for any anticoagulation or anti platelet for stroke prophylaxis due to GI bleeding. - Will address need for aspirin as an outpatient once ulcers healed. - He may be a candidate for a Watchman or a Lariat if he becomes compliant with his care. I discussed with with him and his and they were currently not interested in this for now. - On PO Metoprolol. - May discharge any time from cardiac perspective. - Follow up in the office in 1-2 months.
--- NOTE | 2018-06-01 22:26 | DIS ---
DATE OF ADMISSION: 05/28/2018 DATE OF DISCHARGE: 06/01/2018 PRIMARY CARE PHYSICIAN: Chrystal Cano M.D. DISCHARGE DIAGNOSES: 1. Symptomatic anemia. 2. Upper gastrointestinal bleed. 3. Moderate protein-calorie malnutrition. 4. Hyponatremia. 5. Tobacco abuse. 6. Demand ischemia. 7. EGD on 05/29/2018, which showed LA grade D reflux mediated erosive esophagitis, severe, extending from 30-39 cm with significant ulceration, 3 cm hiatal hernia, mild nodularity of gastric fundus con sistent with PPI use, 7-8 mm duodenal bulb ulceration with adherent clot, status post bipolar cautery with good hemostasis, smaller 3-4 mm clean based ulceration also seen in duodenal bulb without any h igh-risk stigmata. 8. Physical deconditioning. CONSULTATIONS DURING THIS HOSPITALIZATION: Gastroenterology, Dr. Ramos and cardiology, Dr. Flores. CONDITION OF PATIENT ON THE DAY OF DISCHARGE: Stable. I assessed Mr. Mcgill on the day of discharge. He denies any chest pain or shortness of breath. Vital signs are stable. S1 and S2 are heard, regu lar. Lungs are clear to auscultation bilaterally. DISCHARGE MEDICATIONS: Amlodipine 5 mg daily, Lipitor 10 mg at bedtime, baclofen 10 mg 3 times a day , folic acid 1 mg daily, levothyroxine 25 mcg daily, lisinopril 10 mg daily, mirtazapine 30 mg at bed time, multivitamins 1 capsule daily, Protonix 40 mg 2 times a day, nicotine 21 mg patch daily, Lopres sor 50 mg 2 times a day, albuterol 90 mcg inhalation every 6 hours as needed. HOSPITAL COURSE: Mr. Mcgill is a pleasant 72-year-old gentleman who was admitted to [facility] on 05/28/2018 for symptomatic anemia secondary to upper gastrointestinal bleed. Shaniqua reynoso refer to my history and physical note dated 05/28/2018 for further details. He was seen by Gastro enterology Service. On 05/29/2018, he underwent EGD, results as described above. Gastrin level and H. pylori serology were sent out, and are pending at the time of this dictation. Physician at the re ceiving facility is requested to follow up on the results and treat the patient accordingly. He also had elevated troponin I at the time of admission, likely secondary to demand ischemia. A 2D echocardiogram showed left ventricular ejection fraction of 55%-60%, normal right ventricular size an d function, mildly dilated left atrium, normal right atrium size, somewhat thickened aortic valve rhiannon flets, and mild tricuspid regurgitation. On 05/31/2018, he underwent CT scan of the brain, noncontrast for possible left-sided facial droop. There were no acute intracranial abnormalities. He is at very high risk for any antiplatelet agents or anticoagulation for stroke prophylaxis. The Cardiology Service will follow up with him as outpati ent and consider starting him on these agents after resolution of his ulcers. During this hospitalization, he became physically deconditioned. He was evaluated by Rehabilitation Services and is being discharged to inpatient rehabilitation. He has been advised to stop smoking. On the day of discharge, he has sodium 136, potassium 3.7, creatinine 1.01. White count 8800, hemogl obin 8.8, and platelet count 433,000. DISCHARGE DESTINATION: [facility]. TOTAL AMOUNT OF TIME SPENT COORDINATING THIS DISCHARGE: 33 minutes.
--- NOTE | 2018-06-02 11:01 | PRG ---
DATE OF SERVICE: 06/01/2018 SUBJECTIVE: Mr. Mcgill has had no bleeding. He is eating well. He is awaiting evaluation for possibl e transfer to rehabilitation. OBJECTIVE: VITAL SIGNS: Temperature 98, pulse 87, blood pressure 108/70. GENERAL: He is awake. LUNGS: Clear. HEART: Regular rate and rhythm. ABDOMEN: Nontender. LABORATORY STUDIES: White count 8.8, hemoglobin 8.8, MCV 101, platelet count 433. Electrolytes norm al. Pending labs, gastrin and H. pylori. ASSESSMENT AND PLAN: Gastrointestinal bleed secondary to severe erosive esophagitis and gastritis wi th small duodenal ulcers. This has been recurrent phenomenon and likely related to regular alcohol u se, poor diet; however, Helicobacter pylori and fasting gastrin were obtained in this patient. We wi ll need to follow up in the outpatient setting. It is recommended he go home on b.i.d. PPIs and avoi d all alcohol. Follow up in office in 2 weeks.
== END 2018-06-01 15:41 | DRG 380 ==
LOC: ERS 15:44 → 2NO 21:26
PROVIDERS: ADMIT Internal Medicine; ATTEND Internal Medicine
PROC: 0W3P8ZZ Control Bleeding in Gastrointestinal Tract, Via Natural or Artificial Opening Endoscopic (ICD-10-PCS; principal; 2018-05-29)
DX: K22.11 Ulcer of esophagus with bleeding (principal); I21.A1 Myocardial infarction type 2; E87.1 Hypo-osmolality and hyponatremia; E44.0 Moderate protein-calorie malnutrition; Z68.1 Body mass index [BMI] 19.9 or less, adult; D50.0 Iron deficiency anemia secondary to blood loss (chronic); K26.4 Chronic or unspecified duodenal ulcer with hemorrhage; K21.0 Gastro-esophageal reflux disease with esophagitis; I48.0 Paroxysmal atrial fibrillation; K44.9 Diaphragmatic hernia without obstruction or gangrene; I12.9 Hypertensive chronic kidney disease with stage 1 through stage 4 chronic kidney disease, or unspecified chronic kidney disease; N18.9 Chronic kidney disease, unspecified; E86.0 Dehydration; R13.10 Dysphagia, unspecified; I48.91 Unspecified atrial fibrillation; E78.5 Hyperlipidemia, unspecified; K70.30 Alcoholic cirrhosis of liver without ascites; E11.22 Type 2 diabetes mellitus with diabetic chronic kidney disease; J44.9 Chronic obstructive pulmonary disease, unspecified; F41.8 Other specified anxiety disorders; R62.7 Adult failure to thrive; E03.9 Hypothyroidism, unspecified; F17.210 Nicotine dependence, cigarettes, uncomplicated
CPT/HCPCS: 36415; 36416; 70450; 71045; 74230; 80048; 80053; 81003; 81015; 82274; 82550; 82553; 82941; 83605; 83690; 84484; 85025; 85610; 85730; 86677; 86850; 86900; 86901; 87040; 87086; 93005; 93010; 93306; 94760; 96361; 96365; 96366; 96376; 99406; A4216; C9113; G8978-GP-CM; G8979-GP-CK; G8987-GO-CK; G8988-GO-CI; G8996-GN-CK; G8996-GN-CM; G8997-GN-CI; G8997-GN-CJ; J2001; J2543; J2704; J7050

== ENCOUNTER 2018-06-18 03:20 | Inpatient (IN) | payer MEDICARE, BC ==
[2018-06-18 04:29] LABS: Hemoglobin 8.5 g/dL (14.0-18.0); Mean Corpuscular HGB CONC 31.6 g/dL (32.0-36.0); Mean Corpuscular Hemoglobin 31.7 pg (27.0-31.0); Mean Platelet Volume 6.7 fL (7.4-10.4); Platelet Count 663 thou/uL (130-400); RBC Distribution Width 11.6 % (11.5-14.5); Red Blood Cell (RBC) Count 2.67 mill/uL (4.70-6.10); White Blood Cell (WBC) Count 27.2 thou/uL (4.8-10.8)
[2018-06-18 04:44] LABS: ALT (SGPT) 11 U/L (8-55); AST (SGOT) 15 U/L (5-34); Albumin 2.5 g/dL (3.4-4.8); Alkaline Phosphatase 105 U/L (40-150); Anion Gap 14 mmol/L (10-20); BUN (Urea Nitrogen) 24 mg/dL (8.4-25.7); Bilirubin, Total 0.2 mg/dL (0.2-1.2); Calc. Creatinine Clearance 0 mL/min (70-130); Calcium 9.8 mg/dL (7.8-10.44); Carbon Dioxide 31 mmol/L (23-31); Chloride 98 mmol/L (98-107); Estimated GFR-MDRD 61; Globulin 4.1 g/dL (2.4-3.5); Glucose 200 mg/dL (83-110); Potassium 4.2 mmol/L (3.5-5.1); Protein, Total 6.6 g/dL (5.8-8.1); Sodium 139 mmol/L (136-145)
[2018-06-18 04:46] LABS: Band 1 % (5-11); Lymphocytes 4 % (21-51); MDiff Complete? YES; Monocytes 4 % (0-10); Neutrophil 91 % (42-75); PLT Morphology Comment Appears Increased
[2018-06-18 04:47] LABS: CKMB 0.6 ng/mL (0-6.6); Troponin I Less than 0.010 ng/mL (< 0.028)
[2018-06-18] MEDS ORDERED: Cefepime 2 GM VIAL ONE (04:55)
[2018-06-18] MEDS ORDERED: Pantoprazole 80 MG in Sodium Chloride 0.9% 100 ML IVP SCH (05:45)
[2018-06-18 06:17] LABS: Bilirubin Negative (Negative); Blood, Urine Negative (Negative); Clarity CLEAR (Clear); Glucose, Urine (Dipstick) Negative (Negative); Leukocyte Small (Negative); Nitrite Negative (Negative); Protein, Urine (Dipstick) Negative (Neg-Trace); Urobilinogen 0.2 mg/dL (0.2-1.0)
[2018-06-18 06:20] LABS: Bacteria/HPF None Seen HPF (None Seen); Hyaline Casts/LPF 0-3 HYALINE CAST LPF (0-3 Hyaline); Pathc Cast-AUWi Flag 0.58 (0-2.49); RBC/HPF 0-3 HPF (0-3); Squamous Epithelial 0-3 HPF (0-3)
[2018-06-18 06:29] LABS: Specific Gravity, Urine 1.046 (1.002-1.036)
[2018-06-18 07:52] VITALS: BMI 17.9
[2018-06-18] MEDS ORDERED: Acetaminophen 325 MG TAB PO PRN (08:18)
[2018-06-18] MEDS ORDERED: Zolpidem Tartrate 5 MG TAB PO PRN (08:18)
[2018-06-18] MEDS ORDERED: Ondansetron HCl/PF 4 MG/2 ML Vial IVP PRN ×2 (08:18→18:57)
--- NOTE | 2018-06-18 08:24 | RAD ---
CHEST 1 VIEW: Date: 06/18/18 HISTORY: Cough. COMPARISON: Radiograph from 06/05/18. FINDINGS: Lungs are hyperinflated. Skin fold right hemithorax near the right lung apex. There are left-sided likely healing rib fractures. Calcified granuloma left upper lobe. Small left effusion. IMPRESSION: 1. Chronic findings. No acute intrathoracic abnormality. 2. Likely small left pleural effusion. POS: [facility]
--- NOTE | 2018-06-18 08:29 | CT ---
PRELIMINARY REPORT/[facility]/EMERGENTY AFTER-HOURS PROCEDURE Addendum created by Darshan Alexander MD on 06/18/2018 5:08 AM Central Time ([place]) Findings were di scussed with DONIS GAO at 06/18/2018 5:06 AM CDT. Patient has recent diagnosis of gastroduodenal ulcer disease which may explain CT findings. Initial Report created on 06/18/2018 4:59 AM Central Ti de ([place] & [place]) CT Angiography Chest With Intravenous Contrast EXAM DATE/TIME: 06/18/2018 4:11 AM CLINICAL HISTORY: 72 years old, male; Pain; Chest pressure; Patient HX: Additional history obtained from ems, patient r eports several episodes of hemoptysis starting today. Recent hospitalization with subsequent rehab fr om which he was discharged 5 days ago. Reports l-sided cp earlier today, none now. Has felt SHORTNESS OF BREATH for about 2 months. TECHNIQUE: Axial computed tomographic angiography images of the chest with intravenous contrast using CT angiogr aphy protocol. MIP reconstructed images were created and reviewed. COMPARISON: No relevant prior studies available. FINDINGS: Pulmonary arteries: There is no evidence of peripheral filling defects within the pulmonary arterial circulation to suggest pulmonary embolism. Aorta: The aorta is normal. There is no evidence of aortic dissection, leak, rupture, or other compli cations. Lungs: There is nonspecific debris within the bilateral bronchi and distal trachea. There is a pulmon amairani parenchymal calcification consistent with remote granulomatous organism exposure. Mild centrilobu lar emphysematous changes are present. Pleural space: There is a trace LEFT pleural effusion. Heart: Normal. No cardiomegaly. No pericardial effusion. Mediastinum: There is thickening of the esophagus which contains intraluminal debris. Bones/joints: The thoracic spine demonstrates mild degenerative changes at multiple levels. Soft tissues: Unremarkable. Lymph nodes: Unremarkable. No enlarged lymph nodes. Kidneys and ureters: There are multiple simple renal cysts. Stomach and bowel: The stomach is moderately distended. There is discontinuity of the wall at the fir st portion of the duodenum. Perforation cannot be excluded. No definite free air is visualized on thi s exam of the thorax. IMPRESSION: 1. There is nonspecific debris within the bilateral bronchi and distal trachea as well as thickening of the esophagus which contains intraluminal debris. If there is clinical concern for tracheoesophage al fistula, direct inspection versus fluoroscopic evaluation may provide further characterization. 2. There is a trace LEFT pleural effusion. 3. There is discontinuity of the wall at the first portion of the duodenum. Perforation cannot be exc luded. No definite free air is visualized on this exam of the thorax. Thank you for allowing us to participate in the care of your patient. Dictated and Authenticated by: Darshan Alexander MD 06/18/2018 4:59 AM Central Time ([place] & [place]) FINAL REPORT CT ANGIOGRAM CHEST WITH CONTRAST: HISTORY: Chest pain and shortness of breath. COMPARISON: Chest radiograph same day. FINDINGS: CT angiogram chest performed after the intravenous administration of contrast. Three-D rendering is provided. The findings and compression are concordant with the preliminary report. In addition, the re is extensive submucosal edema of the esophagus. Upper endoscopy is recommended. Surgical consult ation recommended. Duodenal perforation is of high concern. There is also high-grade narrowing of t he ostial left renal artery. POS: [facility]
[2018-06-18] MEDS ORDERED: Prevnar 13-Val Conj/PF 0.5 ML SYRINGE IM ONE (08:30)
[2018-06-18] MEDS ORDERED: HumaLOG 300 UNITS/3 ML VIAL SC PRN (08:35)
[2018-06-18] MEDS ORDERED: Dextrose 5% in Water 1,000 ML IV PRN (08:35)
[2018-06-18] MEDS ORDERED: Dextrose 50% Abboject 50 ML SYRINGE SLOW IVP PRN (08:35)
[2018-06-18] MEDS ORDERED: PROVENTIL INHALER 6.7 G (200 INHALATIONS) INH PRN (08:45)
[2018-06-18] MEDS: Sodium Chloride 0.9% 1,000 ML IV SCH ×3 (08:46→21:41)
[2018-06-18] MEDS: Metoprolol Tartrate 50 MG TAB PO SCH ×3 (08:46→21:42)
[2018-06-18] MEDS: Pantoprazole 40 MG VIAL IVP SCH ×2 (08:46→21:42)
[2018-06-18] MEDS: Nicotine 21 MG PATCH TD SCH (08:46)
--- NOTE | 2018-06-18 09:17 | HP ---
PRIMARY CARE PROVIDER: Dr. Cano and [facility]. He also has a chiller hand, Dr. Crawford. HISTORY OF PRESENT ILLNESS: Patient was recently in our hospital with weakness, found to have erosiv e esophagitis severe with duodenal bulb ulceration with clot. He was discharged from the hospital, s pent 2 weeks at rehabilitation, and is apparently since discharged from rehabilitation not been on Pr otonix, he was discharged on 40 mg twice a day. Yesterday, he had 3 episodes of hematemesis, dark bl ood he estimates about a pint, no black tarry stools. He has epigastric discomfort, generalized weak ness. PAST MEDICAL HISTORY: The aforementioned recent erosive esophagitis and duodenal ulcer; atrial fibri llation; diabetes mellitus, type 2; coronary artery disease; COPD; hypertension; dyslipidemia; depres tatyana; hypothyroidism. PAST SURGICAL HISTORY: PCI with stents. Surgery on his scrotum. SOCIAL HISTORY: Prior to a month ago, he drank 1-2 shots of bourbon a day. Smokes 2 packs of cigare ttes a day. FULL CODE status. , next of kin, at bedside. ALLERGIES: No known drug allergies. CURRENT MEDICATIONS: Remeron 30 mg a day, metoprolol 50 mg twice a day, levothyroxine 25 mcg a day, atorvastatin 10 mg a day, amlodipine 5 mg a day, ProAir RespiClick 1 inhalation q.6 hours p.r.n., lis inopril 10 mg a day, folic acid 1 mg a day, baclofen 10 mg 3 times a day. Prior to his hospitalizati on, he was already on Protonix 40 mg a day and was on it twice a day at discharge. FAMILY HISTORY: Mother of CVA. Father at 97 years old. REVIEW OF SYSTEMS: General: No headaches, dizziness, or fainting. Eyes: No double vision, blurred vision, flashing lights. Ears, Nose, Throat: No ear pain or drainage. No nasal bleeding. No trou ble swallowing. Cardiac: No chest pain, orthopnea, or paroxysmal nocturnal dyspnea. Respiratory: No cough, wheezing, or asthma. Gastrointestinal: See present illness. Genitourinary: No hematuria or dysuria. Musculoskeletal: No swelling, pain in his muscles or joints at this time. Neurologic: No strokes, seizures, or focal weakness. Psychiatric: He has a history of depression. Sin: No b ruising, bleeding, or rash. heme/Lymph: No tender or swollen lymph nodes in axilla, inguinal, or ce rvical area. PHYSICAL EXAMINATION: GENERAL: Alert male, somewhat sleepy. VITAL SIGNS: Blood pressure 147/86, pulse 114 and regular, respirations 20, temperature 97.7. HEENT: Examination of his head, eyes, ears, nose, and throat, bilateral arcus. Pupils equal and rou nd. Extraocular movements are intact. Sclerae white. Tympanic membranes clear. Nose clear. Oral mucous membranes are wet. Dental hygiene is good. NECK: Supple, without jugular venous distention, adenopathy, thyromegaly. CHEST: Hyperresonant with decreased breath sounds and occasional rhonchi. HEART: Regular rate and rhythm. First and second heart sounds are clear. No murmurs or gallops. ABDOMEN: Soft, bowel sounds are normal. There is no hepatosplenomegaly, no mass, no rebound, no bru its. There is some very minimal tenderness in the epigastric area. EXTREMITIES: No cyanosis, clubbing, or edema. PULSES: Carotid, radial, femoral, and dorsalis pedis pulses intact. SKIN: Warm and dry without bruises or rash. HEME/LYMPH: No tender or swollen lymph nodes in axilla, inguinal, or cervical area. NEUROLOGICAL: Cranial nerves II-XII are intact. Deep tendon reflexes symmetric. Moves all extremit ies. EKG: Regular sinus rhythm, Q-wave in V2, otherwise normal, reviewed by me. Chest x-ray: Hyperinfla tion, no cardiomegaly, no CHF or infiltrate consistent with COPD, reviewed by me. LABORATORY DATA: White count 27.2, hemoglobin 8.5, platelet count 663,000. D-dimer was 2.[address] scan of the chest was done, which is not read by radiologist at this point. Comprehensive metabolic profile showed a creatinine of 1.39, blood sugar of 200, otherwise normal. BNP was 224. Cardiac en zymes are normal. ADMITTING DIAGNOSES: 1. Upper gastrointestinal bleeding. 2. Recent diagnosis of esophagitis severe and duodenal ulcer, not currently on PPI or H2 susana. 3. Anemia, gastrointestinal blood loss. 4. Hypertension. 5. Atrial fibrillation, now in regular sinus rhythm. 6. Coronary artery disease. 7. Diabetes mellitus, type 2. 8. Chronic obstructive pulmonary disease. PLAN: 1. Protonix IV q.12 hours. 2. Serial H and H. 3. Transfuse as necessary. 4. Consult GI. 5. Selected home medicines. 6. Accu-Cheks and sliding scale.
[2018-06-18] MEDS ORDERED: ISOVUE-370 76%-LOCM 1 ML ONE (10:08)
[2018-06-18 13:29] LABS: Hemoglobin 7.8 g/dL (14.0-18.0); Lymphocytes 10 % (21-51); MDiff Complete? YES; Mean Corpuscular HGB CONC 31.5 g/dL (32.0-36.0); Mean Corpuscular Hemoglobin 31.4 pg (27.0-31.0); Mean Corpuscular Volume 99.4 fL (78.0-98.0); Mean Platelet Volume 6.9 fL (7.4-10.4); Monocytes 10 % (0-10); Neutrophil 80 % (42-75); PLT Morphology Comment Appears Increased; Platelet Count 461 thou/uL (130-400); Poikilocytosis SLIGHT = 6-15 cells (100X) (0-5/hpf); RBC Distribution Width 11.8 % (11.5-14.5); Red Blood Cell (RBC) Count 2.49 mill/uL (4.70-6.10); White Blood Cell (WBC) Count 28.3 thou/uL (4.8-10.8)
[2018-06-18] MEDS ORDERED: PHENYLEPHRINE-NS 100 MCG/ML 10 ML SYRINGE ONE (17:01)
[2018-06-18] MEDS ORDERED: Succinylcholine Chloride 20 MG/ML 10 ml SYRINGE FS ONE (17:01)
[2018-06-18] MEDS ORDERED: Ketamine 50 MG/ML VIAL ONE (18:15)
[2018-06-18] MEDS ORDERED: Promethazine HCl 25 MG/ML VIAL IM PRN (18:57)
[2018-06-18] MEDS ORDERED: Promethazine HCl 25 MG/ML VIAL SLOW IVP PRN (18:57)
[2018-06-18 20:28] LABS: #Eosinphils 0.1 thou/uL (0.0-0.7); #Lymphocytes 2.3 thou/uL (1.20-3.40); #Monocytes 2.1 thou/uL (0.11-0.59); #Neutrophils 26.7 thou/uL (1.40-6.50); %Basophils 0.1 % (0.0-1.0); %Eosinophils 0.3 % (0.0-10.0); %Lymphocytes 7.2 % (21.0-51.0); %Monocytes 6.6 % (0.0-10.0); %Neutrophils 85.8 % (42.0-75.0); Hemoglobin 8.8 g/dL (14.0-18.0); Mean Corpuscular Hemoglobin 31.5 pg (27.0-31.0); Mean Platelet Volume 6.3 fL (7.4-10.4); Platelet Count 583 thou/uL (130-400); RBC Distribution Width 11.9 % (11.5-14.5); Red Blood Cell (RBC) Count 2.79 mill/uL (4.70-6.10); White Blood Cell (WBC) Count 31.1 thou/uL (4.8-10.8)
--- NOTE | 2018-06-18 21:36 | CON ---
DATE OF CONSULTATION: 06/18/2018 REASON FOR CONSULTATION: Hematemesis. CONSULTING PHYSICIAN: Dr. Jaqueline Nagy. HISTORY OF PRESENT ILLNESS: The patient is a 72-year-old -Chinese male with past medical his tory of erosive esophagitis and duodenal ulceration with recent hospitalization for intervention for these 2, atrial fibrillation, diabetes type 2, coronary artery disease, COPD, hypertension, hyperlipi demia, depression and hypothyroidism who presented with complaints of hematemesis. He was recently d ischarged from the hospital in 05/2018 with complaints of abdominal pain and hematemesis. At that ti me, he was noted to have LA grade D reflux, mediated erosive esophagitis, a 3 cm hiatal hernia as wel l as 2 duodenal ulcerations, one of which had high risk stigmata of bleeding and was intervened upon with bipolar cautery. Since discharge, he states that he had not been taking the medication for his acid reflux (pantoprazole) and had been in his usual state of health until yesterday when he experien milla increased midepigastric abdominal discomfort. He did not state his pain per se, but more of a qu easy pressure-like sensation. This was shortly followed by an episode of nausea and vomiting with he matemesis characterized as bright red blood in a small amount. This midepigastric abdominal discomfo rt continued throughout the night and he had two additional episodes of vomiting of this bright red e mesis, prompting admission for healthcare evaluation. Associated symptoms include increased generali zed weakness; however, he currently denies any fevers, chills, melena, hematochezia, dysphagia, odyno phagia, or weight loss. REVIEW OF SYSTEMS: A 10-category review of systems was obtained with all responses negative except f or the pertinent positives as listed in the HPI. PAST MEDICAL HISTORY: As per HPI. PAST SURGICAL HISTORY: PCI stent placement, scrotal surgery. FAMILY HISTORY: Denies any GI malignancies. SOCIAL HISTORY: Smokes 1-2 cigarettes a day. Denies any alcohol or illicit drug use. OUTPATIENT MEDICATIONS: Reviewed. ALLERGIES: No known drug allergies. PHYSICAL EXAMINATION: VITAL SIGNS: Temperature 99.1, pulse 100, blood pressure 96/60, respiratory rate 16, satting 93% on room air. GENERAL: The patient is lying in bed in no acute distress. Alert and oriented x4. HEENT: Neck is supple. Normocephalic, atraumatic. No scleral icterus. CARDIOVASCULAR: Tachycardic rate, but regular rhythm. No discernible murmurs, gallops or rubs. RESPIRATORY: Diminished breath sounds auscultated in all lung su. No discernible wheezes or ral es. ABDOMEN: Normoactive bowel sounds, soft, nondistended, mild tenderness to palpation in the left lowe r quadrant. EXTREMITIES: No cyanosis, clubbing or edema. LABORATORY DATA: CBC with a white blood cell count of 28.3, hemoglobin 7.8, hematocrit 24.8, platele ts 461. Chemistry with a sodium of 139, potassium 4.2, chloride 98, CO2 of 31, BUN 24, creatinine 1. 39, glucose 200, AST 15, ALT 11, alkaline phosphatase 105, total bilirubin 0.2, albumin 2.5. BNP 224 .6. IMAGING DATA: EGD performed on 05/29/2018 showing LA grade D reflux mediated erosive esophagitis as well as a 3-cm hiatal hernia potentially contributing to esophagitis. There was a 7-8 mm duodenal bu lb ulceration that had a dark spot in the center of it concerning for high risk stigmata of bleeding. He was intervened upon successfully with bipolar cauterization. A 3-4 mm duodenal ulcer was also s een in the second portion, but was clean based and was considered not to be high risk of rebleeding o r bleeding in general. Chest x-ray obtained on 06/18/2018 showed no acute intrathoracic abnormality. CT angiography obtained on 06/18/2018 showed nonspecific debris within the bilateral bronchi and di stal trachea as well as thickening of the esophagus which contains intraluminal debris. ASSESSMENT AND PLAN: The patient is a 72-year-old male with past medical history of atrial fibrillat ion, diabetes, coronary artery disease, COPD, hypertension, hyperlipidemia, hypothyroidism, depressio n and recent diagnosis of severe erosive esophagitis and bleeding duodenal ulceration presenting with complaints of hematemesis. Hematemesis. The patient was recently discharged from the hospital with complaints of hematemesis with a duodenal ulceration intervened upon given high risk stigmata of active/recent bleeding. Since discharge from the hospital, he had not been taking the prescribed medication, pantoprazole, which could potentially treat this condition. He was in his usual state of health until last night when he experienced a bi t of liver gastric discomfort as well as nausea and vomiting with hematemesis x3. At the current poi nt in time, the differential could include erosive esophagitis, peptic ulcer disease with rebleeding of the duodenal ulceration, arteriovenous malformation, Dieulafoy lesion. RECOMMENDATIONS: 1. We would continue patient on n.p.o. status in preparation for EGD later on today. 2. We would continue to trend H&H and transfuse as necessary to maintain an H&H of 7/. 3. Continue to monitor clinically for signs of active gastrointestinal bleeding. 4. Continue patient on pantoprazole b.i.d. with aggressive antiemetic control. We will continue to follow. Please call with any questions.
[2018-06-18] MEDS: Atorvastatin Calcium 20 MG TAB PO SCH (21:41)
--- NOTE | 2018-06-18 23:32 | OP ---
DATE OF PROCEDURE: 06/18/2018 PROCEDURE: Esophagogastroduodenoscopy (diagnostic). INDICATION FOR PROCEDURE: Hematemesis. DESCRIPTION OF PROCEDURE: After the risks and benefits of the procedure were explained to the patien t including risk of bleeding, infection, perforation, reactions to anesthesia, aspiration and/or pain , informed consent was obtained. The patient was then taken to the endoscopy suite where general ane sthesia was administered with endotracheal tube in the patient. Once the patient was sedated and int ubated, he was maneuvered into the left lateral decubitus position in preparation for the procedure. The standard gastroscope was then introduced into the mouth with intubation of the esophagus, stomac h and the proximal small intestine with the findings listed below. Patient tolerated the procedure w ell with no immediate perioperative complications. Upon completion of the procedure, all equipment w as removed, and the patient was taken to PACU in satisfactory condition. FINDINGS: Esophagus: Normal appearing mucosa was seen in the proximal esophagus; however, severe circumferenti al ulceration was seen in the mid and distal esophagus extending from 30 cm to 41 cm past the incisor s, there were multiple areas of slight discoloration of the ulceration, but there was no evidence of active or recent bleeding. Near the GE junction, there was increased friability with mild oozing of blood at that site, but no significant bleeding was seen during this examination. Otherwise, no mass lesions were seen within the esophagus. STOMACH: Normal appearing mucosa was seen in the gastric cardia, fundus, body along the greater curv ature, antrum and incisura. There was one focal area of increased mucosal erythema, but was felt to be due to scope trauma. There was no evidence of erosions, ulcerations, mass lesions or active/recen t bleeding. DUODENUM: A large cratered ulceration was seen in the duodenal bulb, consistent with the previously treated [facility] eration, however, the ulceration upon examination tonight was bigger when compared to the previous ex amination. Along the anterior wall, there was an area of old clotted blood that when removed did not reveal any underlying visible vessel or active bleeding. There was no evidence of red spots, nor an y high risk stigmata of bleeding noted within the duodenal ulceration. Upon entry into the second po rtion of the duodenum did not reveal any abnormalities. There was no evidence of mass lesions or act vicki/recent bleeding in the duodenal bulb or second portion of the duodenum. IMPRESSION: 1. LA grade D reflux mediated erosive esophagitis extending in a circumferential manner from 30 cm t o 41 cm (most likely reason for patient's recent hematemesis). 2. Large duodenal bulb ulceration with old clot of blood, but no evidence of high risk stigmata of b leeding or active/recent bleeding. RECOMMENDATIONS: 1. We would continue to trend H&H and transfuse as necessary to maintain an H&H of 7/21. 2. Continue to monitor clinically for signs of active gastrointestinal bleeding. 3. We would place the patient back on pantoprazole 40 mg b.i.d. for reflux esophagitis and duodenal ulceration. 4. We would maintain strict antireflux precautions while inpatient. 5. Can place the patient on a clear liquid diet for tonight. We will continue to follow. Please call with any questions.
[2018-06-19 00:23] LABS: Hemoglobin 7.9 g/dL (14.0-18.0); Mean Corpuscular HGB CONC 31.1 g/dL (32.0-36.0); Mean Corpuscular Hemoglobin 31.5 pg (27.0-31.0); Mean Platelet Volume 6.3 fL (7.4-10.4); Platelet Count 518 thou/uL (130-400); RBC Distribution Width 11.8 % (11.5-14.5); Red Blood Cell (RBC) Count 2.49 mill/uL (4.70-6.10)
[2018-06-19 00:53] LABS: Band 6 % (5-11); Lymphocytes 8 % (21-51); MDiff Complete? YES; Neutrophil 86 % (42-75)
[2018-06-19 05:27] LABS: Anion Gap 12 mmol/L (10-20); BUN (Urea Nitrogen) 22 mg/dL (8.4-25.7); Calc. Creatinine Clearance 53 mL/min (70-130); Calcium 8.8 mg/dL (7.8-10.44); Carbon Dioxide 25 mmol/L (23-31); Chloride 108 mmol/L (98-107); Estimated GFR-MDRD 79; Glucose 108 mg/dL (83-110); Potassium 4.3 mmol/L (3.5-5.1); Sodium 141 mmol/L (136-145)
[2018-06-19] MEDS: Sodium Chloride 0.9% 1,000 ML IV SCH ×2 (06:04→16:47)
[2018-06-19] MEDS: Levothyroxine Sodium 25 MCG TAB PO SCH (06:04)
[2018-06-19 06:30] LABS: Hemoglobin 8.1 g/dL (14.0-18.0); Mean Corpuscular HGB CONC 30.5 g/dL (32.0-36.0); Mean Platelet Volume 6.9 fL (7.4-10.4); Platelet Count 565 thou/uL (130-400); RBC Distribution Width 11.9 % (11.5-14.5); White Blood Cell (WBC) Count 28.5 thou/uL (4.8-10.8)
[2018-06-19 06:49] LABS: Band 9 % (5-11); Lymphocytes 10 % (21-51); MDiff Complete? YES; Macrocytosis SLIGHT = 6-15 cells (100X) (0-5/hpf); Monocytes 2 % (0-10); Neutrophil 79 % (42-75)
[2018-06-19] MEDS: Nicotine 21 MG PATCH TD SCH (08:36)
[2018-06-19] MEDS: Pantoprazole 40 MG VIAL IVP SCH ×2 (08:36→20:58)
[2018-06-19] MEDS: Metoprolol Tartrate 50 MG TAB PO SCH ×2 (08:36→20:58)
[2018-06-19 14:52] LABS: #Eosinphils 0.1 thou/uL (0.0-0.7); #Lymphocytes 2.2 thou/uL (1.20-3.40); #Neutrophils 15.2 thou/uL (1.40-6.50); %Basophils 0.2 % (0.0-1.0); %Eosinophils 0.7 % (0.0-10.0); %Lymphocytes 11.9 % (21.0-51.0); %Monocytes 5.3 % (0.0-10.0); %Neutrophils 81.9 % (42.0-75.0); Hemoglobin 7.5 g/dL (14.0-18.0); Mean Corpuscular HGB CONC 31.4 g/dL (32.0-36.0); Mean Corpuscular Hemoglobin 31.7 pg (27.0-31.0); Mean Platelet Volume 6.5 fL (7.4-10.4); Platelet Count 552 thou/uL (130-400); RBC Distribution Width 12.1 % (11.5-14.5); Red Blood Cell (RBC) Count 2.37 mill/uL (4.70-6.10); White Blood Cell (WBC) Count 18.5 thou/uL (4.8-10.8)
[2018-06-19 15:15] LABS: Iron 16 ug/dL (65-175); Iron Binding Capacity, Total 100 mcg/dL (261-462)
[2018-06-19] MEDS: Ferrous Sulfate 325 MG TAB PO SCH (16:47)
--- NOTE | 2018-06-19 18:28 | PRG ---
DATE OF SERVICE: 06/19/2018 SUBJECTIVE: The patient is feeling well. He has no specific complaints. He is tolerating a clear l iquid diet. His is present and says that she can tell he is feeling better because he is more t alkative and interactive, and when he feels poorly, he does not do those things. OBJECTIVE: VITAL SIGNS: Temperature 98.6, pulse 84, respirations 18, O2 sat 92% on room air, BP 106/68. GENERAL APPEARANCE: Age appropriate male. He is awake, alert, oriented, pleasant, cooperative, no d istress. CARDIOVASCULAR: Heart regular rate and rhythm without murmurs, gallops or rubs. LUNGS: Clear bilaterally. He has diminished breath sounds, but no significant rales. ABDOMEN: Soft, nontender, nondistended, positive bowel sounds. EXTREMITIES: Warm and dry. LABORATORY DATA: White count 18.5, hemoglobin 7.5, platelets 552. Iron is 16, TIBC low at 100, perc ent saturation low at 16%. Sodium is 141, potassium 4.3, chloride 108, BUN 22, creatinine 1.11. IMPRESSION AND PLAN: 1. Acute gastrointestinal bleed, stable. 2. Severe erosive distal esophagitis. 3. Large duodenal bulb ulceration with old clot. 4. Large duodenal bulb clot, continue with IV PPI. Advance his diet as tolerated. 5. Anemia, continue to monitor. 6. Thrombocytosis, likely secondary to iron deficiency. 7. Leukocytosis, possibly due to stress reaction and iron deficiency, improving. 8. Iron deficiency. The patient has poor iron binding capacity, but has low iron levels as well jaquelin pect that is legitimate based on some chronic bleeding and inflammatory changes. We will go ahead an d start him on oral iron supplementation. 9. History of tobacco abuse. I counseled the patient regarding the need to discontinue that. 10. Hyperlipidemia, continue with Lipitor 10 mg daily. 11. Hypothyroidism, continue with levothyroxine 25 mcg p.o. daily. 12. Hypertension. Continue with Lopressor 50 mg p.o. b.i.d.
--- NOTE | 2018-06-19 20:33 | PRG ---
DATE OF SERVICE: 06/19/2018 REASON FOR CONSULTATION: Hematemesis. SUBJECTIVE: Overnight, the patient did well without any acute events or problems. Per nursing staff , he has not had any episodes of hematemesis, melena or hematochezia. Upon conferring with the patie nt, he this finding and currently denies any nausea, vomiting, fevers, chills, abdominal pain, GI bleeding, dysphagia or odynophagia. OBJECTIVE: VITAL SIGNS: Temperature 98.5, pulse 94, blood pressure 118/66, respiratory rate 18, satting 94% on room air. GENERAL: The patient is lying in bed, in no acute distress. Alert and oriented x4. CARDIOVASCULAR: Regular rate and rhythm. RESPIRATORY: Clear to auscultation bilaterally but diminished breath sounds in all lung su. ABDOMEN: Normoactive bowel sounds, soft, nontender, nondistended. EXTREMITIES: No cyanosis, clubbing or edema. LABORATORY DATA: CBC with a white blood cell count of 18.5 (downtrending), hemoglobin 7.5, hematocri t 23.9, platelets 552. Chemistry with a sodium of 141, potassium 4.3, chloride 108, CO2 of 25, BUN 2 2, creatinine 1.11, glucose 108. IMAGING DATA: EGD performed on 06/18/2018 showed severe LA grade D reflux mediated erosive esophagit is extending from 30 cm to 41 cm, being the most likely reason for the patient's hematemesis. The la rge duodenal bulb ulceration that was intervened upon during his prior upper endoscopy was seen with evidence of old clotted blood, but no evidence of high risk stigmata of bleeding or active/recent ble eding. ASSESSMENT AND PLAN: The patient is a 72-year-old male with past medical history of atrial fibrillat ion, diabetes, coronary artery disease, chronic obstructive pulmonary disease, hypertension, hyperlip idemia, hypothyroidism, depression and recent diagnosis of severe erosive esophagitis and bleeding du odenal ulceration presenting with complaints of hematemesis. Hematemesis: The patient was recently discharged from the hospital in 05/2018 with complaints of hem atemesis, for which he underwent EGD that showed a duodenal ulceration that was intervened with bipol ar cautery. However, since his discharge from the hospital, he was not taking the prescribed PPI and ultimately came back to the hospital with complaints of hematemesis. Repeat EGD yesterday showed th e presence of severe reflux esophagitis as well as the aforementioned duodenal ulceration, but no jhoan dence of active/recent bleeding on the ulceration making the reflux esophagitis more likely reason fo r his hematemesis. At the current time, he is currently asymptomatic with no further symptoms and no further episodes of gastrointestinal bleeding. RECOMMENDATIONS: 1. We would continue to trend H&H and transfuse as necessary to maintain an H&H of 03/24. 2. Continue to monitor clinically for signs of active gastrointestinal bleeding. 3. We would continue patient on pantoprazole 40 mg twice daily for at least the next 3 months with a ggressive antiemetic control. 4. The patient will need to be monitored in the hospital probably overnight, but if doing well, coul d be considered for discharge. We will continue to follow. Please call with any additional questions.
[2018-06-19] MEDS: Atorvastatin Calcium 20 MG TAB PO SCH (20:58)
[2018-06-20] MEDS: Levothyroxine Sodium 25 MCG TAB PO SCH (05:16)
[2018-06-20 07:09] VITALS: TEMP 98.3
[2018-06-20] MEDS: Nicotine 21 MG PATCH TD SCH (07:25)
[2018-06-20] MEDS: Metoprolol Tartrate 50 MG TAB PO SCH (07:25)
[2018-06-20] MEDS: Ferrous Sulfate 325 MG TAB PO SCH ×2 (07:25→16:38)
[2018-06-20] MEDS: Pantoprazole 40 MG VIAL IVP SCH (07:25)
[2018-06-20 08:13] LABS: #Eosinphils 0.2 thou/uL (0.0-0.7); #Lymphocytes 2.7 thou/uL (1.20-3.40); #Neutrophils 8.1 thou/uL (1.40-6.50); %Basophils 0.3 % (0.0-1.0); %Eosinophils 1.5 % (0.0-10.0); %Lymphocytes 22.1 % (21.0-51.0); %Monocytes 8.5 % (0.0-10.0); %Neutrophils 67.6 % (42.0-75.0); Hemoglobin 7.5 g/dL (14.0-18.0); Mean Corpuscular HGB CONC 30.9 g/dL (32.0-36.0); Mean Platelet Volume 6.5 fL (7.4-10.4); Platelet Count 554 thou/uL (130-400); RBC Distribution Width 11.8 % (11.5-14.5)
--- NOTE | 2018-06-20 12:28 | PRG ---
DATE OF SERVICE: 06/20/2018 SUBJECTIVE: The patient feels well today. He has no complaints. He has not been getting up much. He states he does get around at home using a walker, but does not have his walker with him. OBJECTIVE: VITAL SIGNS: Temperature 98.3, pulse 90, respirations 19, 91% on room air, BP is 125/69. GENERAL APPEARANCE: Age-appropriate male. He is fairly thin with some temporal muscle wasting. HEART: Regular rate and rhythm without murmurs, gallops, or rubs. LUNGS: Clear to auscultation bilaterally. ABDOMEN: Soft, nontender, nondistended with positive bowel sounds, no masses, no organomegaly. EXTREMITIES: Warm and dry with no edema. LABORATORY DATA: White count 12.5, hemoglobin 7.5, platelets 554, MCV 100. IMPRESSION AND PLAN: 1. Severe ulcerative esophagitis and pyloric bulb ulcer. Continue with PPI as recommended via GI. 2. Anemia. Patient is borderline for need for transfusion. We will check orthostatics and see how he feels getting up and around today. 3. Asked physical therapy to get the patient to ambulate. 4. Iron deficiency. Continue with the iron supplementation. 5. Thrombocytosis, likely secondary to iron deficiency. 5. Leukocytosis, improving, likely some stress reaction. 6. Hyperlipidemia, stable. 7. Hypothyroidism, stable on levothyroxine. 8. Hypertension. Continue Lopressor.
[2018-06-20 15:25] VITALS: BP 123/78
--- NOTE | 2018-06-20 19:37 | PRG ---
DATE OF SERVICE: 06/20/2018 SUBJECTIVE: The patient feels better today. He is eating more, tolerating without nausea or vomitin g. He denies any abdominal pain. No visible bleeding such as melena. PHYSICAL EXAMINATION: VITAL SIGNS: Temperature 99.0, blood pressure 123/78, pulse of 90. GENERAL: He is alert, cachectic, in no distress. HEENT: Shows anicteric sclerae. Oropharynx clear. There is temporal wasting. NECK: Supple. HEART: Normal S1, S2. Regular rate and rhythm. CHEST: Normal breath sounds. ABDOMEN: Soft, flat. No tenderness, no distention. He has active bowel sounds. EXTREMITIES: Shows no edema. LABORATORY DATA: WBC is 12.0, hemoglobin 7.5 (7.5 yesterday), platelet count of 554. No chemistry t giuliano. ASSESSMENT: 1. Status post upper gastrointestinal bleed with duodenal ulcer, no active bleeding seen on EGD yest erday. 2. Severe erosive esophagitis. 3. Acute on chronic anemia, component of gastrointestinal blood loss, stable. 4. Chronic obstructive pulmonary disease. 5. Coronary artery disease. 6. Atrial fibrillation. 7. History of chronic pancreatitis. RECOMMENDATIONS: 1. Overall, patient is very stable from GI standpoint. 2. Would continue with pantoprazole 40 mg p.o. b.i.d. for 3 months before decreasing down to once a day. 3. The patient and instructed to monitor for any evidence of bleeding such as melenic stool and coffee ground emesis. 4. Advised to abstain from alcohol. 5. Encourage physical activity and oral intake. 6. Patient is stable to be discharged from GI standpoint.
--- NOTE | 2018-06-23 12:16 | EKG ---
Test Reason : Blood Pressure : / mmHG Vent. Rate : 099 BPM Atrial Rate : 099 BPM P-R Int : 116 ms QRS Dur : 068 ms QT Int : 334 ms P-R-T Axes : 091 007 088 degrees QTc Int : 428 ms Normal sinus rhythm Low voltage QRS Septal infarct , age undetermined Abnormal ECG Confirmed by MURRAY CELESTIN, DONIS ([id number]), makeup editor MANN SCHMIDT ([id number]) on 06/23/2018 12:16:00 PM Referred By: Confirmed By:DONIS GAO MD
== END 2018-06-20 17:05 | disposition home health service (06) | DRG 392 ==
LOC: ERS 03:20 → 2SE 07:16 → T4-A 06-19 01:26
PROVIDERS: ADMIT Hospitalist; ATTEND Hospitalist
PROC: 0DJ08ZZ Inspection of Upper Intestinal Tract, Via Natural or Artificial Opening Endoscopic (ICD-10-PCS; principal; 2018-06-18)
DX: K21.0 Gastro-esophageal reflux disease with esophagitis (principal); K26.9 Duodenal ulcer, unspecified as acute or chronic, without hemorrhage or perforation; I10 Essential (primary) hypertension; I25.10 Atherosclerotic heart disease of native coronary artery without angina pectoris; E11.9 Type 2 diabetes mellitus without complications; J44.9 Chronic obstructive pulmonary disease, unspecified; E78.5 Hyperlipidemia, unspecified; D50.9 Iron deficiency anemia, unspecified; E03.9 Hypothyroidism, unspecified; Z87.891 Personal history of nicotine dependence; D47.3 Essential (hemorrhagic) thrombocythemia; I48.91 Unspecified atrial fibrillation; F32.9 Major depressive disorder, single episode, unspecified
CPT/HCPCS: 36415; 36416; 71045; 71275; 80048; 80053; 81003; 81015; 82274; 82553; 83540; 83550; 83880; 84484; 85025; 85379; 86850; 86900; 86901; 87040; 87086; 90471; 90670; 93005; 96365; 96366; 96368; 99406; C9113; G0009; G8978-GP-CL; G8979-GP-CJ; J0692; J3370; J7050

== ENCOUNTER 2018-07-17 10:19 | Outpatient (CLI) | payer MEDICARE, BC ==
--- NOTE | 2018-07-17 11:48 | RAD ---
TWO VIEW CHEST: Comparison: 06-18-18 Clinical history: Dyspnea. FINDINGS: Lungs are hyperinflated. Stable high density nodule of the upper left lung indicates granulomatous c alcification. Cardiac silhouette is stable. No significant interval change. IMPRESSION: 1. Hyperinflated lungs, related to COPD. 2. Stable high density nodule along the upper left lung favoring granulomatous calcification. POS: [facility]
== END 2018-07-17 10:20 | disposition home or self-care (01) ==
LOC: RAD 10:19
PROVIDERS: ATTEND Internal Medicine Pulmonary Disease
DX: R06.00 Dyspnea, unspecified (principal); J44.9 Chronic obstructive pulmonary disease, unspecified; R91.8 Other nonspecific abnormal finding of lung field; J98.4 Other disorders of lung
CPT/HCPCS: 71046

== ENCOUNTER 2018-08-07 10:52 | Observation (INO) | payer MEDICARE, BC ==
[2018-08-07 11:36] LABS: #Basophils 0.1 thou/uL (0.0-0.2); #Lymphocytes 4.3 thou/uL (1.20-3.40); #Monocytes 0.9 thou/uL (0.11-0.59); #Neutrophils 4.4 thou/uL (1.40-6.50); %Basophils 0.6 % (0.0-1.0); %Eosinophils 0.3 % (0.0-10.0); %Lymphocytes 44.6 % (21.0-51.0); %Monocytes 9.3 % (0.0-10.0); %Neutrophils 45.2 % (42.0-75.0); Hemoglobin 9.7 g/dL (14.0-18.0); Mean Corpuscular Hemoglobin 29.3 pg (27.0-31.0); Mean Corpuscular Volume 91.6 fL (78.0-98.0); Mean Platelet Volume 7.2 fL (7.4-10.4); Platelet Count 422 thou/uL (130-400); RBC Distribution Width 14.2 % (11.5-14.5); White Blood Cell (WBC) Count 9.7 thou/uL (4.8-10.8)
--- NOTE | 2018-08-07 11:43 | RAD ---
FRONTAL VIEW CHEST: Date: 08/07/18 COMPARISON: 07/17/18. INDICATION: Dyspnea. FINDINGS: Lungs are hyperinflated and lucent. Cardiac silhouette is accentuated by portable technique. No conso lidation, effusion, or discrete pneumothorax. Stable high density nodule in left upper lung zone mary cates granulomatous nodule. IMPRESSION: 1. COPD. 2. No focal consolidation. 3. Granulomatous calcification of the left upper chest. POS: [facility]
[2018-08-07 11:54] LABS: ALT (SGPT) 12 U/L (8-55); AST (SGOT) 25 U/L (5-34); Albumin 2.2 g/dL (3.4-4.8); Alkaline Phosphatase 195 U/L (40-150); Anion Gap 9 mmol/L (10-20); BUN (Urea Nitrogen) 15 mg/dL (8.4-25.7); Bilirubin, Total 0.4 mg/dL (0.2-1.2); CK (CPK) 36 U/L (30-200); Calc. Creatinine Clearance 0 mL/min (70-130); Calcium 9.3 mg/dL (7.8-10.44); Carbon Dioxide 26 mmol/L (23-31); Chloride 105 mmol/L (98-107); Estimated GFR-MDRD 81; Globulin 4.8 g/dL (2.4-3.5); Glucose 144 mg/dL (83-110); Potassium 4.3 mmol/L (3.5-5.1); Sodium 136 mmol/L (136-145)
[2018-08-07 11:59] LABS: Troponin I Less than 0.010 ng/mL (< 0.028)
[2018-08-07 13:12] LABS: Bilirubin Negative (Negative); Blood, Urine Negative (Negative); Clarity CLEAR (Clear); Glucose, Urine (Dipstick) Negative (Negative); Leukocyte Small (Negative); Nitrite Negative (Negative); Protein, Urine (Dipstick) Negative (Neg-Trace); Specific Gravity, Urine 1.011 (1.002-1.036); pH, Urine 7.5 (5.0-9.0)
[2018-08-07 13:17] LABS: Bacteria/HPF None Seen HPF (None Seen); Hyaline Casts/LPF 0-3 HYALINE CAST LPF (0-3 Hyaline); Pathc Cast-AUWi Flag 0.72 (0-2.49); RBC/HPF None Seen HPF (0-3); Squamous Epithelial 0-3 HPF (0-3)
[2018-08-07 13:26] LABS: Transitional Epithelial 0-3 HPF (0-3)
[2018-08-07] MEDS ORDERED: cefTRIAXone\\ROCEPHIN 1 GM VIAL ONE (13:40)
[2018-08-07] MEDS ORDERED: Ondansetron PF 4 MG/2 ML Vial IVP PRN (17:50)
[2018-08-07] MEDS ORDERED: Acetaminophen 500 MG TAB PO PRN (17:50)
[2018-08-07] MEDS ORDERED: Dextrose 5% in Water 1,000 ML IV PRN (17:50)
[2018-08-07] MEDS ORDERED: hydrALAZINE 20 MG/ML VIAL SLOW IVP PRN (17:50)
[2018-08-07] MEDS ORDERED: Ondansetron ODT 4 MG TAB PO PRN (17:50)
[2018-08-07] MEDS ORDERED: HumaLOG 300 UNITS/3 ML VIAL SC PRN ×2 (17:50)
[2018-08-07] MEDS ORDERED: Dextrose 50% Abboject 50 ML SYRINGE SLOW IVP PRN (17:50)
[2018-08-07] MEDS: Metoprolol Tartrate 50 MG TAB PO SCH (20:20)
[2018-08-07] MEDS ORDERED: Nicotine 14 MG PATCH TD SCH (21:00)
[2018-08-07] MEDS ORDERED: Famotidine 20 MG TAB PO SCH (21:00)
--- NOTE | 2018-08-08 01:53 | HP ---
PRIMARY CARE PROVIDER: Dr. Chrystal Cano. CHIEF COMPLAINT: General weakness. HISTORY OF PRESENT ILLNESS: This is a 72-year-old male, who presents to [facility] Emergency Department complaining of progressive weakness over the last 2 to 3 days with difficulty ambulating and decreased appetite. The patient states he receives home health services several times per week, and his home health provider noticed his weakness and mild lower extremity swelling. The patient states he generally sits at home most of the day, but does have physical therapy several times per week with chair exercises and short-distance ambulation using a rolling walker. The patient states he had been independent with a rolling walker, however, now needs assistance with the device. The patient denied any unilateral weakness, visual disturbance, chest pain, shortness of breath, fever, chills, or exposure history. The patient did not have any recent fall or injury. The patient denied taking any new medications or supplements. In the emergency room, the patient underwent general evaluation including metabolic screening with urinalysis showing mild leukocyte esterase, receiving IV Rocephin 1 g. The patient was also noted with mild tachycardia with heart rates in the low 100s, receiving a single dose of Cardizem. Telemetry monitoring revealed a sinus tachycardia with premature supraventricular beats. The patient was referred to the observation unit. PAST MEDICAL HISTORY: 1. Severe erosive esophagitis by EGD, currently treated with proton pump inhibitor. 2. Pyloric bulb ulcer. 3. Chronic anemia with iron deficiency component. 4. Thrombocytosis, chronic. 5. Hyperlipidemia. 6. Hypothyroidism. 7. Hypertension. 8. Diabetes mellitus type 2, diet managed. 9. Moderate to severe protein-calorie malnutrition. 10. Coronary artery disease, status post percutaneous transluminal coronary angioplasty. 11. Chronic obstructive pulmonary disease. 12. Tobacco abuse, ongoing. 13. Depression/posttraumatic stress disorder. 14. History of atrial fibrillation. PAST SURGICAL HISTORY: 1. Status post cardiac catheterization with percutaneous intervention and percutaneous transluminal coronary angioplasty. 2. Status post EGD/colonoscopy. 3. Status post scrotal surgery. CURRENT MEDICATIONS: 1. ProAir HFA two puffs inhaled q.i.d. p.r.n. 2. Amlodipine 5 mg one tablet p.o. daily. 3. Lipitor 10 mg p.o. at bedtime. 4. Baclofen 10 mg p.o. t.i.d. 5. Folic acid 1 mg p.o. daily. 6. Levothyroxine 25 mcg p.o. daily. 7. Lisinopril 10 mg p.o. daily. 8. Magnesium oxide 400 mg p.o. b.i.d. 9. Remeron 30 mg p.o. at bedtime. 10. Multivitamin one tablet p.o. daily. 11. K-Dur 20 mEq p.o. daily. 12. Ferrous sulfate 325 mg p.o. b.i.d. 13. Metoprolol tartrate 50 mg p.o. b.i.d. 14. Protonix 40 mg p.o. b.i.d. ALLERGIES: NO KNOWN DRUG ALLERGIES. FAMILY HISTORY: Mother of complications of cerebrovascular accident. Father at the age of 97. SOCIAL HISTORY: The patient resides in [place], [place]. History of alcohol use daily, none currently. Smokes up to 2 packs of cigarettes a day. No illicit drug use. Ambulates with standby assistance and rolling walker. with as surrogate medical decision maker. REVIEW OF SYSTEMS: CONSTITUTIONAL: Negative for weight loss or gain, ability to conduct usual activities. SKIN: Negative for rash, itching. EYES: Negative for double vision, pain. ENT/MOUTH: Negative for nose bleeding, neck stiffness, pain, tenderness. CARDIOVASCULAR: Negative for palpitations, dyspnea on exertion, orthopnea. RESPIRATORY: Negative for shortness of breath, wheezing, cough, hemoptysis, fever or night sweats. GASTROINTESTINAL: Negative for poor appetite, abdominal pain, heartburn, nausea, vomiting, constipation, or diarrhea. GENITOURINARY: Negative for urgency, frequency, dysuria, nocturia. MUSCULOSKELETAL: Negative for pain, swelling. NEUROLOGIC/PSYCHIATRIC: Negative for anxiety, depression. ALLERGY/IMMUNOLOGIC: Negative for skin rash, bleeding tendency. Otherwise, negative except as stated per HPI. PHYSICAL EXAMINATION: VITAL SIGNS: On admission, blood pressure 130/80, pulse 107, respiratory rate is 20, temperature 98.7 degrees Fahrenheit, and O2 saturation 97% on room air. GENERAL APPEARANCE: This is a 72-year-old male, alert and responsive, cachectic, in no acute distress. HEENT: Pupils are equal, round, and reactive to light and accommodation. Extraocular muscles are intact. No scleral icterus. No conjunctival injection. Nares patent. OP is clear. Teeth in poor repair. NECK: Supple. No cervical adenopathy. No thyromegaly. No carotid bruits. No JVD appreciated. Cervical spine with full active and passive range of motion. No meningeal signs appreciated. CHEST: Diminished breath sounds in the bases bilaterally, otherwise clear. CARDIOVASCULAR: S1 and S2 with distant heart sounds. No murmur, rub, or gallop appreciated. ABDOMEN: Flat, soft, nontender, and nondistended. Bowel sounds are positive in all four quadrants. There is no hepatosplenomegaly. No abdominal bruits. No rebound or guarding appreciated. EXTREMITIES: Warm and dry with fair turgor. Mild pitting edema in the ankle region. Pulses are palpable distally at the dorsalis pedis, posterior tibial, and popliteal arteries bilaterally. Capillary refill less than 2 seconds. MUSCULOSKELETAL: Generalized severe muscle atrophy. NEUROLOGIC: Cranial nerves 2 through 12 are grossly intact. No focal or lateralizing signs appreciated. The patient not observed ambulatory during this exam. PERTINENT LAB AND X-RAY FINDINGS: Sodium 136, potassium 4.3, chloride 105, CO2 of 26, BUN 15, creatinine 1.08, estimated GFR of 81, glucose 144, and calcium 9.3. LFTs within normal limits. Alkaline phosphatase 195. Total CK of 36. BNP 279, previously noted 225 on 06/18/2018. Troponin I less than 0.010. CBC showed a white blood cell count of 9.7, hemoglobin 9.7, hematocrit 30.2, and platelet count 422 with normal differential. Urinalysis showed small leukocyte esterase with 7 to 10 wbc's per high-power field. Portable chest x-ray dated 08/07/2018 showed chronic changes consistent with COPD. No focal consolidation or acute process identified. EKG dated 08/07/2018 by my interpretation shows sinus tachycardia with heart rates in the low 100s. Attenuated R-waves noted in the precordial leads. Normal axis. No acute ST-T wave changes appreciated. ASSESSMENT AND PLAN: 1. Generalized weakness. Suspect multifactorial given the patient's advanced age, comorbid status, and deconditioned state. We will obtain PT evaluation for functional assessment. We will continue metabolic evaluation to include free T4, A1c, and magnesium level in the a.m. Questionable influence of potential urinary tract infection. Await final urine culture results. 2. Severe protein-calorie malnutrition. Multifactorial as stated previously. Ensure high muscle protein supplement t.i.d. PT evaluation. Consider Megace supplementation. 3. Sinus tachycardia, mild. Suspect multifactorial. Resume home regimen of metoprolol 50 mg b.i.d. 4. Lower extremity edema. Suspect secondary to deconditioning and sedentary lifestyle with a component of amlodipine. We will hold amlodipine and monitor clinical response. PT evaluation for mobilization. 5. Hypothyroidism. Recent TSH level within normal limits in 07/2018. Check free T4 level. Resume home levothyroxine 25 mcg daily. 6. Tobacco abuse. We will offer smoking cessation resources prior to discharge. Nicotine 14 mg transdermally daily. 7. Prophylaxis. Sequential compression devices while in bed. PT evaluation for functional assessment. Protonix 40 mg p.o. b.i.d. 8. Code status is full. Surrogate medical decision maker is the patient's spouse. Job ID: [id number]
[2018-08-08 07:05] LABS: Hemoglobin A1c 6.2 % (4.0-6.0)
[2018-08-08 07:06] LABS: Anion Gap 9 mmol/L (10-20); BUN (Urea Nitrogen) 12 mg/dL (8.4-25.7); Calc. Creatinine Clearance 65 mL/min (70-130); Calcium 8.7 mg/dL (7.8-10.44); Carbon Dioxide 22 mmol/L (23-31); Chloride 104 mmol/L (98-107); Estimated GFR-MDRD Greater than 90; Glucose 83 mg/dL (83-110); Magnesium 1.2 mg/dL (1.6-2.6); Sodium 131 mmol/L (136-145)
[2018-08-08 07:36] LABS: Hemoglobin 8.6 g/dL (14.0-18.0); Mean Corpuscular Hemoglobin 29.1 pg (27.0-31.0); Mean Corpuscular Volume 90.7 fL (78.0-98.0); Mean Platelet Volume 7.4 fL (7.4-10.4); Platelet Count 385 thou/uL (130-400); RBC Distribution Width 14.1 % (11.5-14.5); Red Blood Cell (RBC) Count 2.95 mill/uL (4.70-6.10); White Blood Cell (WBC) Count 7.7 thou/uL (4.8-10.8)
[2018-08-08] MEDS: Metoprolol Tartrate 50 MG TAB PO SCH (07:59)
[2018-08-08 08:44] LABS: Lymphocytes 45 % (21-51); MDiff Complete? YES; Monocytes 6 % (0-10); Neutrophil 48 % (42-75); PLT Morphology Comment Appears Adequate; Polychromasia SLIGHT = 2-3 cells (100X) (0-2/hpf)
[2018-08-08 14:54] VITALS: BP 114/74; TEMP 98.4
[2018-08-08 15:55] VITALS: BMI 18.3
--- NOTE | 2018-08-09 12:49 | DIS ---
DATE OF ADMISSION: 08/07/2018 DATE OF DISCHARGE: 08/08/2018 DISCHARGE DIAGNOSES: 1. Generalized weakness, multifactorial. 2. Severe protein-calorie malnutrition. 3. Sinus tachycardia, resolved. 4. Lower extremity edema secondary to amlodipine. 5. Hypothyroidism, stable. 6. Tobacco abuse. CONSULTATIONS: None. PERTINENT LAB AND X-RAY FINDINGS: Sodium ranged between 131 to 136. Hemoglobin A1c 6.2, magnesium level 1.2, free T4 of 0.89. BNP 279. Albumin level 2.2. CBC showed a hemoglobin ranging between 8.6 to 9.7 and platelet count ranged between 385 to 422. Urine culture dated 08/07/2018 showed no growth at 24 hours. Portable chest x-ray dated 08/07/2018 showed changes consistent with chronic obstructive pulmonary disease. No focal consolidation or infiltrate. HOSPITAL COURSE: The patient was observed on the medical unit after presenting with generalized weakness and lower extremity edema. The patient underwent general metabolic screening showing essentially negative workup. The patient was evaluated by Physical Therapy Service and deemed an appropriate candidate for ongoing physical therapy at home. The patient ambulated with the use of a rolling walker without difficulty with plans to resume home health services with physical therapy on discharge. The patient is also ruled out for infectious process with urine culture negative as stated previously. Recommendations are to increase his caloric intake with regular dietary intake. No specific dietary restrictions given. The patient was also noted with lower extremity edema in the ankle region on chronic amlodipine therapy. Amlodipine was discontinued with recommendations for complete discontinuation after discharge. The patient was also given resources regarding smoking cessation and need for ongoing home health services after discharge. I have examined the patient at the time of discharge and discussed followup instructions with the patient and family. The patient is ready for discharge on 08/08/2018. DISCHARGE MEDICATIONS: 1. ProAir RespiClick 90 mcg inhaled q.6 hours p.r.n. 2. Lipitor 10 mg p.o. at bedtime. 3. Vitamin B12 500 mcg p.o. daily. 4. Diclofenac sodium 1% gel 2 g topically q.i.d. p.r.n. 5. Folic acid 1 mg p.o. daily. 6. Levothyroxine 25 mcg p.o. daily. 7. Magnesium oxide 400 mg p.o. b.i.d. 8. Remeron 30 mg p.o. at bedtime. 9. Multivitamin one tab p.o. daily. 10. K-Dur 20 mEq p.o. daily. 11. Baclofen 10 mg p.o. t.i.d. p.r.n. 12. Zestril 5 mg p.o. daily. 13. Metoprolol tartrate 50 mg p.o. b.i.d. 14. Protonix 40 mg p.o. b.i.d. FOLLOWUP: The patient may follow up with Dr. Chrystal Cano within 7 days of discharge. CONDITION ON DISCHARGE: Fair. ACTIVITY: Ad-jordi. Rolling walker for ambulation. DIET: Regular. SPECIAL INSTRUCTIONS: Resume home health services with [facility] including physical therapy. CODE STATUS: Full. DISPOSITION: Home with [facility] on 08/08/2018. Job ID: [id number]
--- NOTE | 2018-08-11 12:27 | EKG ---
Test Reason : IRREG HR Blood Pressure : / mmHG Vent. Rate : 104 BPM Atrial Rate : 104 BPM P-R Int : 114 ms QRS Dur : 064 ms QT Int : 318 ms P-R-T Axes : 075 -12 082 degrees QTc Int : 418 ms Sinus tachycardia with Premature supraventricular complexes Otherwise normal ECG Confirmed by OPAL MCKEE ([id number]), newspaper or periodical editor MANN SCHMIDT ([id number]) on 08/11/2018 12:27:11 PM Referred By: RAFI Confirmed By:OPAL MCKEE
== END 2018-08-08 15:52 | disposition home or self-care (01) ==
LOC: ERS 10:52 → T4-B 14:47
PROVIDERS: ADMIT Family Medicine; ATTEND Family Medicine
DX: R53.1 Weakness (principal); E43 Unspecified severe protein-calorie malnutrition; Z68.1 Body mass index [BMI] 19.9 or less, adult; R00.0 Tachycardia, unspecified; R60.0 Localized edema; E03.9 Hypothyroidism, unspecified; I10 Essential (primary) hypertension; I48.91 Unspecified atrial fibrillation; I25.10 Atherosclerotic heart disease of native coronary artery without angina pectoris; E11.9 Type 2 diabetes mellitus without complications; F17.210 Nicotine dependence, cigarettes, uncomplicated; K22.10 Ulcer of esophagus without bleeding; K25.9 Gastric ulcer, unspecified as acute or chronic, without hemorrhage or perforation; D50.9 Iron deficiency anemia, unspecified; D47.3 Essential (hemorrhagic) thrombocythemia; E78.5 Hyperlipidemia, unspecified; J44.9 Chronic obstructive pulmonary disease, unspecified; F32.9 Major depressive disorder, single episode, unspecified; F43.10 Post-traumatic stress disorder, unspecified; Z95.5 Presence of coronary angioplasty implant and graft; Z79.899 Other long term (current) drug therapy; Z98.890 Other specified postprocedural states
CPT/HCPCS: 51701; 71045; 80048; 80053; 82550; 82553; 82962 ×2; 83036; 83735; 83880; 84439; 84484; 85007; 85025; 85027; 87086; 93005; 96365; 96375; 97530; 99285; G0378; G8978; G8979; 36415; 36416; 81003; 81015; J0696

== ENCOUNTER 2018-11-02 07:14 | Outpatient (CLI) | payer MEDICARE, BC ==
--- NOTE | 2018-11-02 09:59 | CT ---
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 COMPARISON: MRI lumbar spine from 10/12/2018. CT chest, abdomen, and pelvis performed on 04/17/2018. FINDINGS: ABDOMEN: The lung bases show chronic emphysematous type change. No pulmonary nodules are identified . No infiltrative process. The liver and spleen show no focal findings. Within the pancreatic tail, a cystic lesion is again id entified. It is slightly less well defined on today's study. It measures approximately 2 cm in maxi mum dimension, perhaps minimally increased in size as compared to the prior study, although in attemp ting to measure in the same way, I get measurements between 17 and 20 mm on the previous exam. The p atient did have, evidently, an episode of pancreatitis, and this is still probably related to a pancr eatic pseudo cyst but warrants followup. The gallbladder region is unremarkable. The right and left adrenal glands are normal. Multiple hypodense lesions within the kidneys are juan lar to the previous exam and are most compatible with cysts. There are calcifications in both the ri ght and left renal pelvis regions, but I believe these are vascular in nature. There is no significa nt periaortic adenopathy. The infrarenal abdominal aorta is ectatic but not aneurysmal. Measurement s of approximately 2.7 cm are obtained. The aorta, at the level of the bifurcation, measures 2.4 cm, and the right common iliac artery once again shows aneurysmal dilatation with a measurement of appro ximately 2 cm. The left common iliac artery measures approximately 1.6 cm. These findings appear st able. PELVIS: Suggestion of some slight bladder wall thickening. No significant adenopathy or mass. Review of osseous structures shows bony demineralization and arthritic changes of the spine. IMPRESSION: 1. Cystic lesion involving the pancreatic tail, perhaps minimally increased in size as compared to t he prior examination. Continued followup would be recommended. I would recommend a six-month follow -up CT, done per pancreatic mass protocol, for assessment. 2. Bilateral renal cysts. 3. Ectasia of the infrarenal abdominal aorta but no aneurysm. 4. 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 5. Emphysematous lung change. 6. Small hiatal hernia. POS: [facility]
[2018-11-02] MEDS ORDERED: ISOVUE-370 76%-LOCM 1 ML ONE (10:26)
== END 2018-11-02 07:15 | disposition home or self-care (01) ==
LOC: BICCT 07:14
PROVIDERS: ATTEND Internal Medicine
DX: R93.5 Abnormal findings on diagnostic imaging of other abdominal regions, including retroperitoneum (principal); N28.1 Cyst of kidney, acquired; K86.89 Other specified diseases of pancreas; I77.811 Abdominal aortic ectasia; J43.9 Emphysema, unspecified; K44.9 Diaphragmatic hernia without obstruction or gangrene
CPT/HCPCS: 36415; 74174; 80048

== ENCOUNTER 2019-03-28 10:52 | Inpatient (IN) | payer MEDICARE, BC ==
[2019-03-28 11:42] LABS: #Basophils 0.1 thou/uL (0.0-0.2); #Eosinphils 0.1 thou/uL (0.0-0.7); #Lymphocytes 3.5 thou/uL (1.20-3.40); #Monocytes 0.9 thou/uL (0.11-0.59); #Neutrophils 3.9 thou/uL (1.40-6.50); %Basophils 0.7 % (0.0-1.0); %Eosinophils 0.9 % (0.0-10.0); %Lymphocytes 41.6 % (21.0-51.0); %Monocytes 10.2 % (0.0-10.0); %Neutrophils 46.6 % (42.0-75.0); Hemoglobin 10.8 g/dL (14.0-18.0); Mean Corpuscular HGB CONC 31.6 g/dL (32.0-36.0); Mean Corpuscular Hemoglobin 31.9 pg (27.0-31.0); Mean Platelet Volume 7.8 fL (7.4-10.4); Platelet Count 301 thou/uL (130-400); RBC Distribution Width 13.3 % (11.5-14.5); Red Blood Cell (RBC) Count 3.39 mill/uL (4.70-6.10); White Blood Cell (WBC) Count 8.4 thou/uL (4.8-10.8)
--- NOTE | 2019-03-28 11:48 | RAD ---
EXAM: Single view of the chest HISTORY: Weakness and dizziness COMPARISON: 08/07/2018 FINDINGS: Single view of the chest shows a normal sized cardiomediastinal silhouette. There is no jhoan dence of consolidation, mass, or pleural effusion. Degenerative changes are seen in the spine. IMPRESSION: No evidence of acute cardiopulmonary disease
[2019-03-28 12:21] LABS: Chloride 111 mmol/L (98-107); Potassium 4.8 mmol/L (3.5-5.1); Sodium 133 mmol/L (136-145)
[2019-03-28 12:22] LABS: Calcium 8.6 mg/dL (7.8-10.44); Glucose 103 mg/dL (83-110)
[2019-03-28 12:23] LABS: Globulin 4.8 g/dL (2.4-3.5); Protein, Total 6.8 g/dL (5.8-8.1)
[2019-03-28 12:24] LABS: Anion Gap 15 mmol/L (10-20); Bilirubin, Total 0.4 mg/dL (0.2-1.2); Carbon Dioxide 12 mmol/L (23-31)
[2019-03-28 12:25] LABS: Alkaline Phosphatase 235 U/L (40-150)
[2019-03-28 12:26] LABS: Calc. Creatinine Clearance 0 mL/min (70-130); Estimated GFR-MDRD 33
[2019-03-28 12:27] LABS: BUN (Urea Nitrogen) 18 mg/dL (8.4-25.7)
[2019-03-28 12:28] LABS: ALT (SGPT) 21 U/L (8-55); AST (SGOT) 50 U/L (5-34)
[2019-03-28 12:29] LABS: CK (CPK) 38 U/L (30-200); Lipase 20 U/L (8-78)
[2019-03-28] MEDS ORDERED: Aspirin Chewable 81 MG TAB ONE (14:42)
[2019-03-28 15:37] LABS: Troponin I Less than 0.010 ng/mL (< 0.028)
[2019-03-28] MEDS ORDERED: Acetaminophen 325 MG TAB PO PRN (16:36)
[2019-03-28] MEDS: Sodium Chloride 0.9% 1,000 ML IV SCH (17:37)
[2019-03-28] MEDS ORDERED: PROVENTIL INHALER 6.7 G (200 INHALATIONS) INH PRN (19:00)
[2019-03-28 19:09] LABS: Troponin I Less than 0.010 ng/mL (< 0.028)
[2019-03-28] MEDS: Atorvastatin Calcium 20 MG TAB PO SCH (20:31)
[2019-03-28] MEDS: Metoprolol Tartrate 50 MG TAB PO SCH (20:32)
[2019-03-28] MEDS: Mirtazapine 30 MG Soltab PO SCH (20:32)
[2019-03-28] MEDS: Magnesium Oxide 400 MG TAB PO SCH (20:35)
--- NOTE | 2019-03-29 00:34 | HP ---
CHIEF COMPLAINT: [facility] HISTORY OF PRESENT ILLNESS: This patient is a 73-year-old male, who continues to have significant tobacco abuse. The patient states he felt fine yesterday. Today when he woke up, he started feeling dizzy, but the dizziness would go away entirely, when he closes his eyes. He says it is still slightly present, but goes away very rapidly. [facility]. He and his believed that his blood pressure was low, and he was subsequently referred to the ER, although the says they really did not tell them much information about why he is being sent. He does admit that he has not been eating very well. He has poor appetite. He is not drinking much fluids. His says that she can tell, when he starts to get dehydrated just simply by his behavior, and she has been worried about that for about a week. He is down about 4 pounds in four months. Denies any chest pain or shortness of breath. He does report generalized weakness and fatigue. REVIEW OF SYSTEMS: He has normal bowel habits. He indicates he did not void at all yesterday, but was voiding relatively well today. All other systems reviewed. All pertinent positives and negatives noted in the history of present illness. PAST MEDICAL HISTORY: Notable for an admission here in August with generalized weakness. At that time, the patient's weight was actually at 135 pounds. He has history of erosive esophagitis, pyloric bulb ulcer, chronic iron deficiency anemia, thrombocytosis, hyperlipidemia, hypothyroidism, hypertension, diabetes mellitus type 2, diet managed, [id number] protein-calorie malnutrition, coronary artery disease, status post PTCA, COPD followed by Dr. Sheriff, tobacco abuse, PTSD, history of atrial fibrillation, followed by Dr. Crawford. PAST SURGICAL HISTORY: PTCA of coronary artery, prior EGD, prior scrotal surgery for drainage of an abscess. FAMILY HISTORY: Mother of complications of a CVA. Father at 97. SOCIAL HISTORY: The patient continues to smoke half a pack of cigarettes per day. He has one mixed drink of alcohol per day. Denies drugs. He is , and his is his surrogate decision maker. He is full code. He ambulates with some standby assistance and/or rolling walker. ALLERGIES: NONE. MEDICATIONS: 1. Mirtazapine 30 mg nightly. 2. Albuterol 90 mcg inhaled q.6 hours p.r.n. 3. Zestril 5 mg daily. 4. Folic acid 1 mg p.o. daily. 5. B12 500 mcg p.o. daily. 6. Baclofen 10 mg t.i.d. 7. Atorvastatin 10 mg nightly. 8. Multivitamin 1 p.o. daily. 9. Metoprolol 50 mg b.i.d. 10. Magnesium oxide 400 mg b.i.d. 11. Protonix 40 mg b.i.d. PHYSICAL EXAMINATION: VITAL SIGNS: Temperature is 98.1, pulse 79, respirations 20, O2 saturation 95% on room air, and BP 122/66. GENERAL APPEARANCE: Very thin, age-appropriate male, in no distress. He is awake, alert, pleasant, and conversant. He has some generalized sarcopenia. HEENT: He has significant arcus senilis. He has no OP lesions, but a dry oral mucosa. NECK: Supple and symmetric without lymphadenopathy, JVD, or bruits. HEART: Regular rate and rhythm without murmurs, gallops, or rubs. LUNGS: Very diminished throughout with very poor air exchange. No wheezes or rales. ABDOMEN: Soft, nontender, and nondistended. Positive bowel sounds. No masses. No organomegaly. EXTREMITIES: No cyanosis or clubbing. There is edema around the right ankle that is pitting, but does not go up the leg at all. PSYCH: Normal affect and behavior. NEUROLOGIC: The patient has normal functional extremities. Cranial nerves intact. There is abnormal cognition. LABORATORY DATA: White count 8.4, hemoglobin 10.8, and platelets 301. Sodium 133, potassium 4.8, chloride 111, CO2 12, BUN 18, creatinine is 2.33, glucose 103, AST 50, ALT 21, alkaline phosphatase 235. CK is 38, troponin less than 0.01 x2. Albumin 2.0, lipase 20. DIAGNOSTIC STUDIES: Chest x-ray shows no evidence of acute cardiopulmonary disease. EKG appears to show sinus rhythm at 72, however, has very low voltage and the baseline is poor. Computer reads atrial fibrillation, although it does not appear to be the case, I cannot entirely rule that out, appears to be much more regular. IMPRESSION AND PLAN: 1. Acute renal failure. The patient's baseline glomerular filtration rate appears to be in the normal range and today it is at 38. I suspect this is due to some dehydration. We will continue to monitor with fluids. Of note, his BUN is actually normal, which one would suspect would be higher with prerenal dehydration. We will need to watch closely. If this does not improve significantly with fluids, we will need to get a renal ultrasound. Also, the patient has a history of benign prostatic hyperplasia with apparent outlet obstruction. This could be an obstructive uropathy causing some nephropathy as well. We will need to monitor that. 2. Vertigo, appears to be a benign positional vertigo and resolving. 3. Mild hyponatremia. Again, we will need to monitor with hydration. 4. Metabolic acidosis secondary to renal insufficiency. 5. Moderate protein-calorie malnutrition. The patient's weight is actually up 9 pounds from August in spite of that the patient looks very thin and frail. 6. Chronic anemia and is macrocytic. We will check B12 and folate. The patient is currently taking B vitamin supplements. 7. Chronic obstructive pulmonary disease. I suspect this is likely driving the patient's nutrition and a sarcopenia. 8. Hypotension. Apparently, the patient had some hypotension at the [facility]. We will continue monitor with hydration. 9. The [facility] reported that the [facility] with some new T-wave inversions in inferior leads that is not present on his EKG here and that EKG is not available here now to review. We will continue to trend his troponins. Keep him on telemetry. 10. Hyperlipidemia, continue with statin. Job ID: [id number]
[2019-03-29] MEDS: Sodium Chloride 0.9% 1,000 ML IV SCH (03:15)
[2019-03-29 05:19] LABS: #Eosinphils 0.1 thou/uL (0.0-0.7); #Lymphocytes 2.2 thou/uL (1.20-3.40); #Monocytes 0.5 thou/uL (0.11-0.59); #Neutrophils 3.1 thou/uL (1.40-6.50); %Basophils 0.5 % (0.0-1.0); %Eosinophils 1.3 % (0.0-10.0); %Lymphocytes 37.2 % (21.0-51.0); %Monocytes 8.5 % (0.0-10.0); %Neutrophils 52.4 % (42.0-75.0); Hemoglobin 10.4 g/dL (14.0-18.0); Mean Corpuscular HGB CONC 33.1 g/dL (32.0-36.0); Mean Corpuscular Hemoglobin 32.3 pg (27.0-31.0); Mean Corpuscular Volume 97.5 fL (78.0-98.0); Mean Platelet Volume 7.6 fL (7.4-10.4); Platelet Count 251 thou/uL (130-400); RBC Distribution Width 13.2 % (11.5-14.5); Red Blood Cell (RBC) Count 3.23 mill/uL (4.70-6.10); White Blood Cell (WBC) Count 5.9 thou/uL (4.8-10.8)
[2019-03-29 05:42] LABS: ALT (SGPT) 18 U/L (8-55); AST (SGOT) 40 U/L (5-34); Albumin 1.9 g/dL (3.4-4.8); Alkaline Phosphatase 208 U/L (40-150); Anion Gap 12 mmol/L (10-20); BUN (Urea Nitrogen) 16 mg/dL (8.4-25.7); Bilirubin, Total 0.5 mg/dL (0.2-1.2); Calc. Creatinine Clearance 33 mL/min (70-130); Calcium 8.4 mg/dL (7.8-10.44); Carbon Dioxide 15 mmol/L (23-31); Chloride 115 mmol/L (98-107); Estimated GFR-MDRD 45; Globulin 4.4 g/dL (2.4-3.5); Glucose 80 mg/dL (83-110); Iron 59 ug/dL (65-175); Iron Binding Capacity, Total 100 mcg/dL (261-462); Potassium 4.4 mmol/L (3.5-5.1); Protein, Total 6.3 g/dL (5.8-8.1); Sodium 138 mmol/L (136-145)
[2019-03-29 07:07] LABS: Folate (Folic Acid) 35.1 ng/mL (7.0-31.4)
[2019-03-29] MEDS: Magnesium Oxide 400 MG TAB PO SCH ×2 (08:23→21:07)
[2019-03-29] MEDS: Multivit, Therapeutic 1 TAB PO SCH (08:23)
[2019-03-29] MEDS: Metoprolol Tartrate 50 MG TAB PO SCH ×2 (08:24→21:08)
[2019-03-29] MEDS: Folic Acid 1 MG TAB PO SCH (08:24)
[2019-03-29] MEDS ORDERED: Lisinopril 5 MG TAB PO SCH (09:00)
[2019-03-29] MEDS ORDERED: Cyanocobalamin (Vitamin B-12) 1,000 MCG TAB PO SCH (09:00)
--- NOTE | 2019-03-29 09:35 | PDOC.HOSPP ---
- Subjective Subjective: 73 y/o male with COPD and PCM admitted due to dizziness and TALYA. Started on IVF for dehydration/volume depletion. Dizziness has resolved. Oral intake remained poor. No fever. - Objective Vital Signs & Weight: Vital Signs (12 hours) Temp Pulse Resp BP Pulse Ox 03/29/19 08:26 81 03/29/19 07:36 97.9 F 81 20 111/62 98 03/29/19 03:26 98.5 F 86 21 H 123/65 98 03/28/19 23:29 98.0 F 74 16 119/67 98 Weight Weight 142 lb 9.6 oz I&O: 03/28/19 03/29/19 03/30/19 06:59 06:59 06:59 Intake Total 1597 Output Total 900 Balance 697 Result Diagrams: 03/29/19 05:05 03/29/19 05:05 ROS - Review of Systems All systems: All other ROS were reviewed and found negative. - Medication Medications: Active Medications Generic Name Dose Route Start Last Admin Trade Name Yomiq PRN Reason Stop Dose Admin Atorvastatin Calcium 10 mg 03/28/19 21:00 03/28/19 20:31 Lipitor PO 10 mg HS JULIA Administration Cyanocobalamin 500 mcg 03/29/19 09:00 03/29/19 08:13 Vitamin B-12 PO Not Given DAILY JULIA Folic Acid 1 mg 03/29/19 09:00 03/29/19 08:24 Folvite PO 1 mg DAILY JULIA Administration Magnesium Oxide 400 mg 03/28/19 21:00 03/29/19 08:23 Magnesium Oxide PO 400 mg BID JULIA Administration Metoprolol Tartrate 50 mg 03/28/19 21:00 03/29/19 08:24 Lopressor PO 50 mg BID JULIA Administration Mirtazapine 30 mg 03/28/19 21:00 03/28/19 20:32 Remeron Soltab PO 30 mg HS JULIA Administration Multivitamins 1 tab 03/29/19 09:00 03/29/19 08:23 Theragran PO 1 tab DAILY JULIA Administration Pantoprazole Sodium 40 mg 03/28/19 21:00 03/29/19 08:23 Protonix PO 40 mg BID JULIA Administration - Exam awake alert, ill appearing (Cachetic) Eye: PERRL, anicteric sclera ENT: normocephalic atraumatic Neck: supple, no JVD Heart: RRR, no murmur Respiratory: no rales (Fair air entry bilaterrally with no obvious crackles or rhonchi or respiratory distress) Gastrointestinal: soft, non-tender, non-distended, normal bowel sounds Extremities: no cyanosis, no clubbing (Trace right leg edema. muscle wasting of the extremities noted) Neurological: CN's grossly intact, no focal deficits Musculoskeletal: generalized weakness, diffuse muscle atrophy Psychiatric: A&O x 3 Hosp A/P (1) TALYA (acute kidney injury) Code(s): N17.9 - ACUTE KIDNEY FAILURE, UNSPECIFIED Status: Resolved (2) Dehydration Code(s): E86.0 - DEHYDRATION Status: Acute (3) Protein-calorie malnutrition, moderate Code(s): E44.0 - MODERATE PROTEIN-CALORIE MALNUTRITION Status: Acute (4) Metabolic acidosis Code(s): E87.2 - ACIDOSIS Status: Acute (5) BPH (benign prostatic hyperplasia) Code(s): N40.0 - BENIGN PROSTATIC HYPERPLASIA WITHOUT LOWER URINRY TRACT SYMP Status: Acute (6) Hyponatremia Code(s): E87.1 - HYPO-OSMOLALITY AND HYPONATREMIA Status: Acute (7) Abnormal LFTs Code(s): R94.5 - ABNORMAL RESULTS OF LIVER FUNCTION STUDIES Status: Acute (8) COPD (chronic obstructive pulmonary disease) Status: Chronic Qualifiers: COPD type: chronic bronchitis - Plan DC Lisinopril. substitute NS with bicarb containing infusion Monitor electrolytes and renal function. Start oral supplementa Coleman oral intake advised
[2019-03-29] MEDS: Sodium Bicarbonate 75 MEQ in Sodium Chloride 0.45% 1,000 ML IV SCH ×2 (10:33→21:08)
[2019-03-29 12:49] VITALS: BMI 18.3
[2019-03-29] MEDS ORDERED: Acetaminophen 325 MG TAB PO PRN (18:15)
[2019-03-29] MEDS: Mirtazapine 30 MG Soltab PO SCH (21:08)
[2019-03-29] MEDS: Atorvastatin Calcium 20 MG TAB PO SCH (21:08)
[2019-03-30] MEDS ORDERED: Ondansetron ODT 4 MG TAB PO PRN (05:40)
[2019-03-30] MEDS ORDERED: Ondansetron PF 4 MG/2 ML Vial IVP PRN (05:40)
[2019-03-30 06:29] LABS: ALT (SGPT) 18 U/L (8-55); AST (SGOT) 47 U/L (5-34); Albumin 1.9 g/dL (3.4-4.8); Alkaline Phosphatase 203 U/L (40-150); Anion Gap 13 mmol/L (10-20); BUN (Urea Nitrogen) 13 mg/dL (8.4-25.7); Bilirubin, Total 0.3 mg/dL (0.2-1.2); Calc. Creatinine Clearance 48 mL/min (70-130); Calcium 8.7 mg/dL (7.8-10.44); Carbon Dioxide 22 mmol/L (23-31); Chloride 111 mmol/L (98-107); Estimated GFR-MDRD 67; Globulin 4.3 g/dL (2.4-3.5); Glucose 111 mg/dL (83-110); Potassium 4.9 mmol/L (3.5-5.1); Protein, Total 6.2 g/dL (5.8-8.1); Sodium 141 mmol/L (136-145)
[2019-03-30] MEDS: Sodium Bicarbonate 75 MEQ in Sodium Chloride 0.45% 1,000 ML IV SCH ×2 (07:18→17:29)
[2019-03-30] MEDS ORDERED: Loperamide HCl 2 MG CAP PO PRN (09:03)
[2019-03-30] MEDS ORDERED: Sodium Chloride 0.65% Nasal 44 ML BOT EA NARE PRN (09:03)
[2019-03-30] MEDS ORDERED: Calcium Carbonate 500 MG ChewTAB PO PRN (09:03)
[2019-03-30] MEDS ORDERED: Loratadine 10 MG TAB PO PRN (09:03)
[2019-03-30] MEDS ORDERED: Artificial Tears 18 DROP/0.9 ML EA EYE PRN (09:03)
[2019-03-30] MEDS ORDERED: Cepastat Lozenges 1 LOZ PO PRN (09:03)
[2019-03-30] MEDS ORDERED: Bisacodyl 10 MG SUPP PR PRN (09:03)
[2019-03-30] MEDS ORDERED: Senokot S 8.6-50 MG TAB PO PRN (09:03)
[2019-03-30] MEDS ORDERED: hydrALAZINE 20 MG/ML VIAL SLOW IVP PRN (09:03)
[2019-03-30] MEDS ORDERED: HYDROcodone/Acetaminophen 5/325 mg Tablet PO PRN (09:03)
[2019-03-30] MEDS ORDERED: Acetaminophen 500 MG TAB PO PRN (09:03)
[2019-03-30] MEDS ORDERED: Diabetic Tussin 200 MG/10 ML UDCUP PO PRN (09:03)
[2019-03-30] MEDS: Folic Acid 1 MG TAB PO SCH (09:22)
[2019-03-30] MEDS: Magnesium Oxide 400 MG TAB PO SCH ×2 (09:22→21:52)
[2019-03-30] MEDS: Multivit, Therapeutic 1 TAB PO SCH (09:22)
[2019-03-30] MEDS: Metoprolol Tartrate 50 MG TAB PO SCH ×2 (09:23→21:52)
[2019-03-30] MEDS ORDERED: Nicotine 21 MG PATCH TD PRN (11:41)
--- NOTE | 2019-03-30 11:58 | PDOC.HOSPP ---
- Subjective Subjective: Patient seen and examined. No new complaints. No overnight events, today feels better and expressed wish to go home, bedside - Objective Vital Signs & Weight: Vital Signs (12 hours) Temp Pulse Resp BP Pulse Ox 03/30/19 07:35 98 F 88 16 152/66 H 97 03/30/19 04:00 98.7 F 101 H 20 160/60 H 97 Weight Admit Weight 144 lb Weight 145 lb 1.6 oz I&O: 03/29/19 03/30/19 03/31/19 06:59 06:59 06:59 Intake Total 1597 2660 Output Total 900 600 Balance 697 2060 Result Diagrams: 03/29/19 05:05 03/30/19 05:02 EKG Reviewed by me: Yes ROS - Review of Systems All systems: All other ROS were reviewed and found negative. Constitutional: denies: fever, chills, sweats, weakness, malaise, other Respiratory: denies: cough, dry, shortness of breath, hemoptysis, SOB with excertion, pleuritic pain, sputum, wheezing, other Cardiovascular: denies: chest pain, palpitations, orthopnea, paroxysmal noc. dyspnea, edema, light headedness, other Gastrointestinal: denies: nausea, vomitting, abdominal pain, diarrhea, constipation, melena, hematochezia, other Genitourinary: denies: dysuria, frequency, incontinence, hematuria, retention, other Musculoskeletal: denies: neck pain, shoulder pain, arm pain, back pain, hand pain, leg pain, foot pain, other Skin: denies: rash, lesions, mona, bruising, other - Medication Medications: Active Medications Generic Name Dose Route Start Last Admin Trade Name Freq PRN Reason Stop Dose Admin Acetaminophen 650 mg 03/29/19 18:15 03/30/19 05:03 Tylenol PO 650 mg Q6H PRN Administration Headache/Fever/Mild Pain (1-3) Atorvastatin Calcium 10 mg 03/28/19 21:00 03/29/19 21:08 Lipitor PO 10 mg HS JULIA Administration Folic Acid 1 mg 03/29/19 09:00 03/30/19 09:22 Folvite PO 1 mg DAILY JULIA Administration Sodium Bicarbonate 75 meq/ 1,075 mls @ 100 mls/hr 03/29/19 09:00 03/30/19 07: 18 Sodium Chloride IV 1,075 mls INF JULIA Administration Magnesium Oxide 400 mg 03/28/19 21:00 03/30/19 09:22 Magnesium Oxide PO 400 mg BID JULIA Administration Metoprolol Tartrate 50 mg 03/28/19 21:00 03/30/19 09:23 Lopressor PO 50 mg BID JULIA Administration Mirtazapine 30 mg 03/28/19 21:00 03/29/19 21:08 Remeron Soltab PO 30 mg HS JULIA Administration Multivitamins 1 tab 03/29/19 09:00 03/30/19 09:22 Theragran PO 1 tab DAILY JULIA Administration Pantoprazole Sodium 40 mg 03/28/19 21:00 03/30/19 09:23 Protonix PO 40 mg BID JULIA Administration - Exam NAD, awake alert Eye: PERRL, anicteric sclera ENT: normocephalic atraumatic, no oropharyngeal lesions Neck: symmetric, no JVD Heart: RRR, no murmur, no gallops, no rubs Respiratory: no wheezes, no rales, no ronchi Gastrointestinal: soft, non-tender, non-distended, normal bowel sounds Extremities: no cyanosis, no clubbing, no edema Skin: normal turgor, no lesions Neurological: CN's grossly intact, no focal deficits, speech deficit Musculoskeletal: normal tone, normal strength Psychiatric: normal affect, normal behavior Hosp A/P (1) Acute kidney failure Status: Acute (2) Dehydration Code(s): E86.0 - DEHYDRATION Status: Acute (3) Abnormal LFTs Code(s): R94.5 - ABNORMAL RESULTS OF LIVER FUNCTION STUDIES Status: Acute (4) Hyponatremia Code(s): E87.1 - HYPO-OSMOLALITY AND HYPONATREMIA Status: Acute (5) Metabolic acidosis Code(s): E87.2 - ACIDOSIS Status: Acute (6) Anemia, normocytic normochromic Code(s): D64.9 - ANEMIA, UNSPECIFIED Status: Chronic (7) BPH (benign prostatic hyperplasia) Code(s): N40.0 - BENIGN PROSTATIC HYPERPLASIA WITHOUT LOWER URINRY TRACT SYMP Status: Chronic (8) COPD (chronic obstructive pulmonary disease) Status: Chronic Qualifiers: COPD type: chronic bronchitis (9) DM type 2 (diabetes mellitus, type 2) Status: Chronic Qualifiers: Diabetes mellitus terminal supervisor insulin use: unspecified custodial insulin use status Diabetes mellitus complication status: with hyperosmolarity (10) H/O: duodenal ulcer Code(s): Z87.19 - PERSONAL HISTORY OF OTHER DISEASES OF THE DIGESTIVE SYSTEM Status: Chronic (11) Protein-calorie malnutrition, moderate Code(s): E44.0 - MODERATE PROTEIN-CALORIE MALNUTRITION Status: Chronic - Plan old records reviewed/req, plan discussed w/ family, PT/OT renal function improving will repeat labs tomorrow continue ivf medication reviewed as below symptomatic treatment discussed with
[2019-03-30] MEDS: Baclofen 10 MG TAB PO PRN (13:58)
[2019-03-30] MEDS ORDERED: Promethazine 25 MG TAB PO PRN (17:24)
[2019-03-30] MEDS: Atorvastatin Calcium 20 MG TAB PO SCH (21:52)
[2019-03-30] MEDS: Mirtazapine 30 MG Soltab PO SCH (21:52)
[2019-03-31] MEDS: Sodium Bicarbonate 75 MEQ in Sodium Chloride 0.45% 1,000 ML IV SCH (03:45)
[2019-03-31 06:13] LABS: #Eosinphils 0.1 thou/uL (0.0-0.7); #Lymphocytes 3.1 thou/uL (1.20-3.40); #Monocytes 0.8 thou/uL (0.11-0.59); #Neutrophils 3.1 thou/uL (1.40-6.50); %Basophils 0.5 % (0.0-1.0); %Eosinophils 0.9 % (0.0-10.0); %Lymphocytes 43.4 % (21.0-51.0); %Monocytes 11.7 % (0.0-10.0); %Neutrophils 43.5 % (42.0-75.0); Hemoglobin 9.6 g/dL (14.0-18.0); Mean Corpuscular HGB CONC 34.2 g/dL (32.0-36.0); Mean Corpuscular Hemoglobin 32.8 pg (27.0-31.0); Mean Platelet Volume 7.2 fL (7.4-10.4); Platelet Count 265 thou/uL (130-400); RBC Distribution Width 12.9 % (11.5-14.5); Red Blood Cell (RBC) Count 2.92 mill/uL (4.70-6.10); White Blood Cell (WBC) Count 7.1 thou/uL (4.8-10.8)
[2019-03-31 06:31] LABS: Anion Gap 10 mmol/L (10-20); BUN (Urea Nitrogen) 10 mg/dL (8.4-25.7); Calc. Creatinine Clearance 55 mL/min (70-130); Calcium 8.2 mg/dL (7.8-10.44); Carbon Dioxide 29 mmol/L (23-31); Chloride 106 mmol/L (98-107); Estimated GFR-MDRD 79; Glucose 98 mg/dL (83-110); Potassium 4.4 mmol/L (3.5-5.1); Sodium 141 mmol/L (136-145)
[2019-03-31] MEDS ORDERED: Magnesium Oxide 400 MG TAB PO SCH (09:00)
[2019-03-31] MEDS: Baclofen 10 MG TAB PO PRN (09:43)
[2019-03-31] MEDS: Folic Acid 1 MG TAB PO SCH (09:44)
[2019-03-31] MEDS: Metoprolol Tartrate 50 MG TAB PO SCH (09:44)
[2019-03-31] MEDS: Multivit, Therapeutic 1 TAB PO SCH (09:44)
--- NOTE | 2019-03-31 10:15 | PDOC.HOSPP ---
- Subjective Subjective: Patient seen and examined. No new complaints. No overnight events - Objective Vital Signs & Weight: Vital Signs (12 hours) Temp Pulse Resp BP BP Pulse Ox 03/31/19 07:56 97.4 F L 102 H 18 122/69 96 03/31/19 03:44 96.6 F L 94 16 132/65 96 Weight Admit Weight 144 lb Weight 145 lb 1.6 oz I&O: 03/30/19 03/31/19 04/01/19 06:59 06:59 06:59 Intake Total 2660 2160 Output Total 600 500 Balance 2060 1660 Result Diagrams: 03/31/19 06:03 03/31/19 06:03 EKG Reviewed by me: Yes ROS - Review of Systems All systems: All other ROS were reviewed and found negative. Constitutional: denies: fever, chills, sweats, weakness, malaise, other Eyes: denies: pain, vision change, conjunctivae inflammation, eyelid inflammation, redness, other ENT: denies: ear pain, ear discharge, nose pain, nose discharge, nose congestion , mouth pain, mouth swelling, throat pain, throat swelling, other Respiratory: denies: cough, dry, shortness of breath, hemoptysis, SOB with excertion, pleuritic pain, sputum, wheezing, other Cardiovascular: denies: chest pain, palpitations, orthopnea, paroxysmal noc. dyspnea, edema, light headedness, other Gastrointestinal: denies: nausea, vomitting, abdominal pain, diarrhea, constipation, melena, hematochezia, other Genitourinary: denies: dysuria, frequency, incontinence, hematuria, retention, other Musculoskeletal: denies: neck pain, shoulder pain, arm pain, back pain, hand pain, leg pain, foot pain, other Skin: denies: rash, lesions, mona, bruising, other - Medication Medications: Active Medications Generic Name Dose Route Start Last Admin Trade Name Freq PRN Reason Stop Dose Admin Hydrocodone Bitart/Acetaminophen 1 tab 03/30/19 09:03 03/31/19 09:43 Kite 5/325 PO 1 tab Q4H PRN Administration Moderate Pain (4-6) Atorvastatin Calcium 10 mg 03/28/19 21:00 03/30/19 21:52 Lipitor PO 10 mg HS JULIA Administration Baclofen 10 mg 03/28/19 21:00 03/31/19 09:43 Lioresal PO 10 mg TID PRN Administration Muscle Spasm Folic Acid 1 mg 03/29/19 09:00 03/31/19 09:44 Folvite PO 1 mg DAILY JULIA Administration Magnesium Oxide 400 mg 03/31/19 09:00 03/31/19 09:44 Magnesium Oxide PO 400 mg DAILY JULIA Administration Metoprolol Tartrate 50 mg 03/28/19 21:00 03/31/19 09:44 Lopressor PO 50 mg BID JULIA Administration Mirtazapine 30 mg 03/28/19 21:00 03/30/19 21:52 Remeron Soltab PO 30 mg HS JULIA Administration Multivitamins 1 tab 03/29/19 09:00 03/31/19 09:44 Theragran PO 1 tab DAILY JULIA Administration Pantoprazole Sodium 40 mg 03/31/19 09:00 03/31/19 09:44 Protonix PO 40 mg DAILY JULIA Administration - Exam NAD, awake alert Eye: PERRL, anicteric sclera ENT: normocephalic atraumatic, no oropharyngeal lesions Neck: symmetric, no JVD Heart: RRR, no murmur, no gallops, no rubs Respiratory: CTAB, no wheezes, no rales, no ronchi Gastrointestinal: soft, non-tender, non-distended, normal bowel sounds Extremities: no cyanosis, no clubbing, no edema Skin: normal turgor, no lesions Neurological: CN's grossly intact, normal sensation to touch, no focal deficits Musculoskeletal: normal tone, normal strength Psychiatric: normal affect, normal behavior Hosp A/P (1) Acute kidney failure Status: Acute (2) Dehydration Code(s): E86.0 - DEHYDRATION Status: Acute (3) Abnormal LFTs Code(s): R94.5 - ABNORMAL RESULTS OF LIVER FUNCTION STUDIES Status: Acute (4) Hyponatremia Code(s): E87.1 - HYPO-OSMOLALITY AND HYPONATREMIA Status: Acute (5) Metabolic acidosis Code(s): E87.2 - ACIDOSIS Status: Acute (6) Anemia, normocytic normochromic Code(s): D64.9 - ANEMIA, UNSPECIFIED Status: Chronic (7) BPH (benign prostatic hyperplasia) Code(s): N40.0 - BENIGN PROSTATIC HYPERPLASIA WITHOUT LOWER URINRY TRACT SYMP Status: Chronic (8) COPD (chronic obstructive pulmonary disease) Status: Chronic Qualifiers: COPD type: chronic bronchitis (9) DM type 2 (diabetes mellitus, type 2) Status: Chronic Qualifiers: Diabetes mellitus usp insulin use: unspecified buttermaker continuous churn insulin use status Diabetes mellitus complication status: with hyperosmolarity (10) H/O: duodenal ulcer Code(s): Z87.19 - PERSONAL HISTORY OF OTHER DISEASES OF THE DIGESTIVE SYSTEM Status: Chronic (11) Protein-calorie malnutrition, moderate Code(s): E44.0 - MODERATE PROTEIN-CALORIE MALNUTRITION Status: Chronic - Plan old records reviewed/req, plan discussed w/ family, dc IVF pt does not want snu/rehab medication reviewed as below symptomatic treatment see my discharge edmond
--- NOTE | 2019-03-31 11:26 | DIS ---
DATE OF ADMISSION: 03/29/2019 DATE OF DISCHARGE: 03/31/2019 PRIMARY CARE PHYSICIAN: [facility] Call Admission. DISCHARGE DISPOSITION: Home. PRIMARY DISCHARGE DIAGNOSES: 1. Acute kidney failure improved, dehydration, corrected. 2. Hyponatremia, corrected. 3. Abnormal LFT, improving. 4. Metabolic acidosis, resolved. SECONDARY DISCHARGE DIAGNOSES: 1. Moderate protein-calorie malnutrition. 2. History of duodenal ulcer and esophagitis. 3. Diabetes type 2. 4. Chronic obstructive pulmonary disease. 5. Benign enlargement of prostate. 6. Normocytic normochromic anemia. PRIMARY PROCEDURE/OPERATION: None. RADIOLOGICAL INVESTIGATION: Chest x-ray was unremarkable. SIGNIFICANT LABORATORY DATA: WBC 7.1, hemoglobin 9.6, platelet 265. Sodium 141, potassium 4.4, BUN 10, creatinine 1.1, calcium 8.2. DISCHARGE MEDICATIONS: 1. ProAir HFA 2 puffs q.6 hourly p.r.n. 2. Lipitor 10 mg p.o. at bedtime. 3. Folic acid 1 mg daily. 4. Remeron 30 mg p.o. at bedtime. 5. Multivitamin one tablet daily. 6. Baclofen 10 mg t.i.d. p.r.n. 7. Vitamin B12 1000 mcg p.o. daily. 8. Lisinopril 5 mg p.o. daily. 9. Magnesium oxide 400 mg p.o. daily. 10. Lopressor 50 mg b.i.d. 11. Protonix 40 mg p.o. daily. 12. Thiamine 100 mg p.o. daily. CONTRAINDICATION: None. CODE STATUS: Full code. INPATIENT MANAGER NON PROFIT: None. ALLERGIES: NO KNOWN DRUG ALLERGIES. DISCHARGE PLAN: Posthospital, the patient will follow up with primary care physician. HOSPITAL COURSE: A 73-year-old male, who was admitted by Dr. Faustin. Please see his H and P for further details. The patient was admitted for acute kidney failure. He was having dehydration from poor p.o. intake. He also has protein-calorie malnutrition. He is drinking alcohol intermittently and he is heavy smoker. While in hospital, he was dehydrated. He had hyponatremia and metabolic acidosis that were treated with IV fluid with bicarbonate and renal function improved to normal. His metabolic acidosis and hyponatremia had improved. He has mild LFT abnormality that is also improving. The patient was doing much better after IV fluid and he wanted to go home. He had physical therapy while in hospital and Physical Therapy recommended few rehabilitation placement, but the patient does not want to go any kind of [facility] home or rehab placement and that is why based on his request, we are discharging him home. We have advised him to change Protonix daily basis as well as magnesium oxide daily basis and we resumed lisinopril on discharge. Rest of medication will be continued as per previous. The patient is overall medically stable for discharge. Please see my progress note from today for further detail. Job ID: [id number]
[2019-03-31 11:57] VITALS: BP 111/72; TEMP 96.6
== END 2019-03-31 12:52 | disposition home or self-care (01) | DRG 683 ==
LOC: ERS 10:52 → 2SW 16:14 → OBSVTOIN 03-29 14:04 → 2NO 03-29 17:42
PROVIDERS: ADMIT Internal Medicine; ATTEND Internal Medicine
DX: N17.9 Acute kidney failure, unspecified (principal); E87.1 Hypo-osmolality and hyponatremia; E87.2 Acidosis; E44.0 Moderate protein-calorie malnutrition; Z68.1 Body mass index [BMI] 19.9 or less, adult; E86.0 Dehydration; E11.9 Type 2 diabetes mellitus without complications; J44.9 Chronic obstructive pulmonary disease, unspecified; N40.0 Benign prostatic hyperplasia without lower urinary tract symptoms; D64.9 Anemia, unspecified; I48.91 Unspecified atrial fibrillation; E78.5 Hyperlipidemia, unspecified; F17.210 Nicotine dependence, cigarettes, uncomplicated; R94.5 Abnormal results of liver function studies; Z87.19 Personal history of other diseases of the digestive system; Z79.899 Other long term (current) drug therapy
CPT/HCPCS: 36415; 71045; 80048; 80053; 82274; 82550; 82607; 82728; 82746; 83540; 83550; 83690; 84484; 85025; 93005; 96360; J2405

== ENCOUNTER 2019-06-25 09:16 | Outpatient (CLI) | payer MEDICARE, BC ==
--- NOTE | 2019-06-25 11:31 | CT ---
CT OF ABDOMEN AND PELVIS WITH AND WITHOUT CONTRAST CT UROGRAM: DATE: 06/25/2019. HISTORY: Microhematuria. TECHNIQUE: Axial CT imaging obtained at 5 mm intervals from lung bases through pubic symphysis with and without IV contrast using a CT urogram protocol. Coronal and sagittal reformatted imaging obtained. FINDINGS: The visualized lung bases demonstrate mild increased inferior medial density within the left lower lo be with an adjacent small left pleural effusion. There is also linear density in the right lower lobe posteromedially with a focal area of peripheral pleural-based nodularity within the right lower lobe. This area of peripheral nodularity is a nonspecific finding and may represent volume loss as it is new when compared to 06/18/2018. This area of density measures 1.7 cm in greatest dimension. Gi fede conspicuity and size, recommend follow-up chest CT for full assessment. Of note, this was also not present on a CT angiogram of the abdomen and pelvis performed 11/02/2018. There is no free intraperitoneal air appreciated on this examination. Nonobstructing stone noted in the upper pole of the left kidney measuring 3-4 millimeters. Punctate n onobstructing stone noted in the midpole of the right kidney as well. Renal arterial vascular calcifications are seen within the region of the renal hilum bilaterally. No evidence for obstructive uropathy is apparent on either side. The liver demonstrates a heterogeneous degree of diffuse hypodensity suggesting diffuse hepatic steat osis, and the liver is relatively small, measuring 15.7 cm in craniocaudal dimension and 20 cm in transverse dimension. Of note, the liver has decreased in size significantly when compared to the 11/02 CT angiogram at which time the liver measured 16.7 cm in craniocaudal dimension and 23 cm in transverse dimension. The diffuse hypodensity of the hepatic parenchyma is a new finding when compare d to the prior examination. In addition, there is new prominent ascites throughout the abdomen/pelvis. The hypodense nature of the hepatic parenchyma limits detailed assessment for focal lesion. The gallb ladder, pancreas, and adrenal glands are unremarkable. There are numerous bilateral hypodense renal lesions, consistent with numerous renal cysts. No discre te solid renal mass lesion seen. Evaluation of the bowel is limited without oral contrast and demonstrates no evidence for inflammator y change or obstruction. There is extensive atherosclerotic calcification of the abdominal aorta and its branches with multifo crissy prominent calcified and noncalcified plaque. No evidence for abdominal aortic aneurysm. 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 No abdominal or pelvic lymphadenopathy is apparent on this examination. The imaged osseous structures demonstrate diffuse decreased density suggesting possible demineralizat ion. No acute osseous abnormality is seen. IMPRESSION: 1. New marked abnormality involving the hepatic parenchyma with interval development of diffuse hypo density and irregularity of the hepatic parenchyma. The liver appears smaller than on the prior examination and there is extensive new ascites. Correlation with liver function tests and abdominal M RI advised. 2. No evidence for solid renal mass lesion or obstructive uropathy. Nonobstructing renal stone disea se as detailed above. 3. Possible nodule within the right lung base versus volume loss or scar. Dedicated CT examination o f the chest advised. CODE T Transcribed Date/Time: 06/25/2019 12:09 PM
== END 2019-06-25 09:17 | disposition home or self-care (01) ==
LOC: CT 09:16
PROVIDERS: ATTEND Urology
DX: R31.29 Other microscopic hematuria (principal)
CPT/HCPCS: 74178; 82565

== ENCOUNTER 2019-08-06 12:29 | Outpatient (CLI) | payer MEDICARE, BC ==
--- NOTE | 2019-08-06 13:46 | MRI ---
EXAM: MRI of the abdomen without and with contrast COMPARISON: None HISTORY: Cirrhosis and ascites TECHNIQUE: Multiplanar multi sequence MR images were taken of the abdomen without and with IV contras t. [An MRCP was performed.] FINDINGS: Liver: Cirrhotic liver without focal liver lesion identified. No abnormal enhancement. Moderate asci layne is seen. Gallbladder: No filling defects or gallbladder wall thickening. Common bile duct: Normal caliber without filling defects Adrenal glands: Unremarkable. Kidneys: Numerous scattered nonenhancing foci of high T2 signal measuring up to 3.5 cm in size repres ent cysts. No abnormal areas of enhancement. Spleen: Unremarkable. Pancreas: Unremarkable. No abnormal enhancement. Retroperitoneum: No enlarged lymph nodes Bones: No marrow signal abnormality. Visualized inferior thorax: Small bilateral pleural effusions. IMPRESSION: 1. Cirrhosis with ascites 2. Bilateral renal cysts
== END 2019-08-06 12:30 | disposition home or self-care (01) ==
LOC: MRI 12:29
PROVIDERS: ATTEND Internal Medicine Gastroenterology
DX: K70.30 Alcoholic cirrhosis of liver without ascites (principal); R18.8 Other ascites; R63.0 Anorexia; N28.1 Cyst of kidney, acquired
CPT/HCPCS: 74183; 82565

== ENCOUNTER 2019-08-10 03:19 | Emergency (ER) | payer MEDICARE, BC ==
[2019-08-10 04:28] LABS: #Basophils 0.1 thou/uL (0.0-0.2); #Lymphocytes 1.7 thou/uL (1.20-3.40); #Monocytes 0.8 thou/uL (0.11-0.59); #Neutrophils 4.5 thou/uL (1.40-6.50); %Basophils 0.9 % (0.0-1.0); %Eosinophils 0.1 % (0.0-10.0); %Lymphocytes 23.5 % (21.0-51.0); %Monocytes 11.1 % (0.0-10.0); %Neutrophils 64.3 % (42.0-75.0); Hemoglobin 9.1 g/dL (14.0-18.0); Mean Corpuscular HGB CONC 32.3 g/dL (32.0-36.0); Mean Corpuscular Hemoglobin 30.7 pg (27.0-31.0); Mean Corpuscular Volume 95.1 fL (78.0-98.0); Mean Platelet Volume 7.4 fL (7.4-10.4); Platelet Count 327 thou/uL (130-400); RBC Distribution Width 13.7 % (11.5-14.5); Red Blood Cell (RBC) Count 2.97 mill/uL (4.70-6.10)
[2019-08-10 04:49] LABS: ALT (SGPT) 20 U/L (8-55); AST (SGOT) 48 U/L (5-34); Albumin 1.5 g/dL (3.4-4.8); Alkaline Phosphatase 208 U/L (40-110); Anion Gap 14 mmol/L (10-20); BUN (Urea Nitrogen) 17 mg/dL (8.4-25.7); Bilirubin, Total 0.8 mg/dL (0.2-1.2); CK (CPK) 22 U/L (30-200); Calc. Creatinine Clearance 0 mL/min (70-130); Calcium 8.2 mg/dL (7.8-10.44); Carbon Dioxide 24 mmol/L (23-31); Chloride 103 mmol/L (98-107); Estimated GFR-MDRD 32; Globulin 5.2 g/dL (2.4-3.5); Glucose 139 mg/dL (83-110); Lipase 27 U/L (8-78); Potassium 4.6 mmol/L (3.5-5.1); Protein, Total 6.7 g/dL (5.8-8.1); Sodium 136 mmol/L (136-145)
--- NOTE | 2019-08-10 07:56 | RAD ---
EXAM: Single view of the chest HISTORY: Dyspnea and cough COMPARISON: 03/28/2019 FINDINGS: Single view of the chest shows a normal sized cardiomediastinal silhouette. There is no jhoan dence of consolidation, mass, or pleural effusion. Degenerative changes are seen in the spine. IMPRESSION: No evidence of acute cardiopulmonary disease
== END 2019-08-10 06:04 | disposition home or self-care (01) ==
LOC: ERS 03:19
DX: K70.30 Alcoholic cirrhosis of liver without ascites (principal); R06.00 Dyspnea, unspecified; I48.91 Unspecified atrial fibrillation; E11.9 Type 2 diabetes mellitus without complications; E78.5 Hyperlipidemia, unspecified; F43.10 Post-traumatic stress disorder, unspecified; F17.210 Nicotine dependence, cigarettes, uncomplicated; Z79.51 Long term (current) use of inhaled steroids; Z79.899 Other long term (current) drug therapy
CPT/HCPCS: 36415; 71045; 80053; 82550; 83690; 83880; 84484; 85025; 85379; 93005

== ENCOUNTER 2019-08-15 11:23 | Inpatient (IN) | payer MEDICARE, BC ==
[2019-08-15 12:09] LABS: #Basophils 0.1 thou/uL (0.0-0.2); #Lymphocytes 1.8 thou/uL (1.20-3.40); #Monocytes 0.6 thou/uL (0.11-0.59); #Neutrophils 3.3 thou/uL (1.40-6.50); %Basophils 1.4 % (0.0-1.0); %Eosinophils 0.3 % (0.0-10.0); %Lymphocytes 31.6 % (21.0-51.0); %Monocytes 10.3 % (0.0-10.0); %Neutrophils 56.4 % (42.0-75.0); Mean Corpuscular HGB CONC 32.8 g/dL (32.0-36.0); Mean Corpuscular Volume 94.5 fL (78.0-98.0); Mean Platelet Volume 7.5 fL (7.4-10.4); Platelet Count 285 thou/uL (130-400); Red Blood Cell (RBC) Count 3.23 mill/uL (4.70-6.10); White Blood Cell (WBC) Count 5.8 thou/uL (4.8-10.8)
[2019-08-15 12:37] LABS: ALT (SGPT) 12 U/L (8-55); AST (SGOT) 30 U/L (5-34); Albumin 1.5 g/dL (3.4-4.8); Alkaline Phosphatase 195 U/L (40-110); Anion Gap 12 mmol/L (10-20); BUN (Urea Nitrogen) 23 mg/dL (8.4-25.7); Calc. Creatinine Clearance 0 mL/min (70-130); Calcium 8.5 mg/dL (7.8-10.44); Carbon Dioxide 26 mmol/L (23-31); Chloride 102 mmol/L (98-107); Estimated GFR-MDRD 21; Globulin 5.4 g/dL (2.4-3.5); Glucose 103 mg/dL (83-110); Lipase 26 U/L (8-78); Protein, Total 6.9 g/dL (5.8-8.1); Sodium 135 mmol/L (136-145)
--- NOTE | 2019-08-15 13:29 | CT ---
CT abdomen and pelvis noncontrast HISTORY: Abdominal pain. COMPARISON: 06/25/2019. FINDINGS: Bilateral pleural fluid and bibasilar atelectasis have increased. Each renal collecting sys tem, ureter, and urinary bladder are decompressed. Small calcifications at each renal hilum, most favored to be vascular, are stable. Hyperdense stone within the dependent portion the gallbladder lum en. Lack of contrast limits evaluation of the soft tissues. Large amount of free fluid throughout the abd omen has increased somewhat. Liver remains heterogeneous and small with a nodular contour. Multiple lobular cysts of the kidneys similar in appearance to the previous exam. There is prominent calcifica tion throughout the arterial structures. No free intraperitoneal gas. Prominent degenerative changes of the lumbar spine. IMPRESSION: Interval increase in ascites and bilateral pleural fluid. Cirrhotic appearance of the liver, although other abdominal findings are not typical for portal venou s hypertension. Atherosclerosis. Cholelithiasis. Chronic-type findings are stable.
[2019-08-15 13:43] LABS: Base Excess-Venous 4.4 mmol/L (-2.0 to 3.0); Bicarbonate (HCO3v) 31.1 mmol/L (22.0-28.0); CO2 Tension (PvCO2) 56.3 mmHg (40.0-50.0); Calcium, Ionized 1.28 mmol/L (See Comments:); Chloride 102 mmol/L (98-107); Hemoglobin - Calc 10.9 g/dL (14.0-18.0); Sodium 140 mmol/L (138-145); T. Carbon Dioxide 32.9 mmol/L (22.0-28.0); vO2 Saturation-calc 18.7 % (60.0-85.0)
[2019-08-15] MEDS ORDERED: Senokot S 8.6-50 MG TAB PO PRN (14:09)
[2019-08-15 14:53] LABS: Bilirubin Negative (Negative); Blood, Urine Negative (Negative); Clarity Clear (Clear); Glucose, Urine (Dipstick) Normal (Negative); Leukocyte Negative Leu/uL (Negative); Nitrite Negative (Negative); Protein, Urine (Dipstick) Negative (Neg-Trace); Urobilinogen Normal mg/dL (Less than 2)
[2019-08-15] MEDS ORDERED: Albumin 25% 25 GM/100 ML BOT IVPB SCH (15:00)
[2019-08-15] MEDS ORDERED: Sodium Bicarbonate 2.5 MEQ/5 ML VIAL ONE (15:34)
[2019-08-15 15:44] LABS: INR-International Normal Ratio 1.4; Prothrombin Time 17.1 SEC (12.0-14.7)
[2019-08-15 15:45] LABS: PTT 42.1 SEC (22.9-36.1)
[2019-08-15 15:56] LABS: Lactic Acid 1.6 mmol/L (0.5-2.2)
--- NOTE | 2019-08-15 17:41 | ULT ---
Sonographic guided paracentesis HISTORY: Ascites. Abdominal distention. FINDINGS: After explaining the procedure and answering all questions, sonographic survey shows large amount of free fluid throughout the abdomen. Sterile technique, buffered local anesthesia, sonographic guidance, and a right lower quadrant approach were used to carefully advance a 19-gauge Y ueh needle and catheter into the free fluid. Catheter was left to drain a total volume of 3.0 L bright yellow liquid. Catheter was removed. Moderate amount of fluid did remain. A portion of the flu id was sent to laboratory for analysis. Drainage was limited to 3 L since this was the patient's first time to be drained. IMPRESSION: Technically successful sonographic guided paracentesis.
[2019-08-15 19:06] LABS: BF Color Colorless; BF RBC Count - Manual 2 /cumm; BF WBC/Nonhematics Ct. - Manua 28 /cumm; Body Fluid Source Ascites Body Fluid; Clarity Hazy (Clear); Tube # EDTA
[2019-08-15 19:11] LABS: BF Segmented Neutrophils 12 %; Cell Count Non Hematic 77 %; Lymphocytes 11 %
[2019-08-15] MEDS: cefTRIAXone\\ROCEPHIN 1 GM in Sodium Chloride 0.9% 100 ML IVPB SCH (19:13)
[2019-08-15] MEDS: Albumin 25% 25 GM/100 ML BOT IVPB SCH (19:14)
--- NOTE | 2019-08-15 19:15 | HP ---
CHIEF COMPLAINT: Abdominal pain. HISTORY OF PRESENT ILLNESS: The patient is a very pleasant 73-year-old male with a history of cirrhosis secondary to alcohol abuse, history of hypertension and BPH, who presents to the hospital with complaints of abdominal pain and worsening abdominal girth for the past couple of weeks. The patient's who is at the bedside stated that he had intense abdominal pain and so she brought him into the ER for further evaluation. The patient denies any fevers or chills, any nausea or vomiting. He has been having some bouts of diarrhea. According to the family, he has not been eating very much at all and has lost immense amount of weight. He was put on oral diuretics for his fluid control, however, it seems to not be working. PAST MEDICAL HISTORY: 1. He has a history of hypertension. 2. Cirrhosis secondary to alcohol use. 3. BPH. 4. He has had esophagitis and ulcer. 5. He has also had iron deficiency anemia, hypothyroidism, hypertension, diabetes, COPD. PAST SURGICAL HISTORY: He has had a PTCA prior EGD and scrotal abscess drain. FAMILY HISTORY: Mother of complications of CVA. Father at age of 97. SOCIAL HISTORY: He continues to smoke half a pack of cigarettes a day. He was a drinker in the past. Does not drink anymore. He is , lives with his . He is currently a do not resuscitate per the patient's . I did speak with the patient's and the daughter. He has not been ambulating much. He only gets up with assistance to the bedside commode. ALLERGIES: NO KNOWN DRUG ALLERGIES. MEDICATIONS: He is on: 1. Zestril 5 mg daily. 2. Folic acid one p.o. daily. 3. Atorvastatin 10 mg daily. 4. Multivitamin one p.o. daily. 5. Metoprolol 50 mg b.i.d. 6. Magnesium 400 mg b.i.d. 7. Protonix 40 mg b.i.d. REVIEW OF SYSTEMS: All negative except for the ones mentioned above in the HPI. PHYSICAL EXAMINATION: VITAL SIGNS: Temperature of 114/60, heart rate of 80, temperature 98.7. He is 92% on 2 L. GENERAL: He is awake, alert, and oriented x2. Appears very cachectic, sunken eyes, appears very malnourished. HEENT: Normocephalic, atraumatic. No lymphadenopathy noted. Again, the patient has very dry mucous membranes and very cachectic with temporal wasting. CV: S1 and S2 present. No murmurs, rubs, or gallops. LUNGS: Clear to auscultation. No rhonchi or wheezes noted. ABDOMEN: Distended, obese. Bowel sounds are present x2. He does have significant dullness upon percussion to his flank area bilaterally. NEUROVASCULAR: No focal deficits noted. SKIN: No cuts, lesions, or bruises noted. EXTREMITIES: He does have +1 lower extremity pitting edema. LABORATORY RESULTS: The patient has WBC of 5.8, hemoglobin of 10.0, hematocrit of 30.5, platelets of 285. Chemistry; sodium 140, potassium of 5.0, BUN of 22, creatinine of 3.44, lactic acid of 2.5. His troponin is less than 0.010. He did have a CT of abdomen and pelvis, which indicated significant large amount of ascites and a cirrhotic appearing liver and cholelithiasis. ASSESSMENT AND PLAN: The patient is a 73-year-old male who presents to the hospital with abdominal pain. 1. Acute decompensated liver failure. The patient has significant abdominal widening girth. He has never had a paracentesis. We will go ahead and do a paracentesis. Also, we will give him some albumin. He appears very malnourished. We will start him on prophylactic ceftriaxone. We will check a cell count, albumin, and an LDH. 2. Acute kidney injury, possible hepatorenal, however unclear at this time. We will start him on some gentle hydration; however, this is definitely going but at this time, I will start him on some gentle hydration and also give him some albumin 3 times a day for 24 hours. 3. Severe protein-calorie malnutrition. The patient has severe muscle wasting. He has not been eating very much. I did talk with the family. They have tried various medications such as Megace and appetite stimulating medications; however, the patient has still not been able to eat very much. 4. Lactic acidosis, most likely secondary to hypotensive. He was hypotensive when he came into the ER. I do not think there is any infectious etiology at this moment. 5. Code status. I did discuss code status mostly with the patient's family, the . She actually agreed on do not resuscitate and the patient's daughter who is at the bedside also agreed. I will put him as a do not resuscitate. The daughter did mention a hospice and they had been talking with the patient's primary care for hospice services. I will get a case management consult for hospice for this patient. 6. Deep vein thrombosis prophylaxis. We will put the patient on SCDs for now. Job ID: [id number]
[2019-08-15 19:52] VITALS: BMI 21.2
[2019-08-15] MEDS ORDERED: Sodium Chloride 0.9% 500 ML IV SCH (21:30)
[2019-08-16] MEDS ORDERED: Senokot S 8.6-50 MG TAB PO PRN (09:44)
[2019-08-16] MEDS: Albumin 25% 25 GM/100 ML BOT IVPB SCH ×4 (09:54→20:35)
[2019-08-16] MEDS ORDERED: Baclofen 10 MG TAB PO PRN (10:32)
[2019-08-16 12:59] LABS: Anion Gap 11 mmol/L (10-20); BUN (Urea Nitrogen) 25 mg/dL (8.4-25.7); Calc. Creatinine Clearance 19 mL/min (70-130); Calcium 8.4 mg/dL (7.8-10.44); Carbon Dioxide 28 mmol/L (23-31); Chloride 103 mmol/L (98-107); Estimated GFR-MDRD 21; Glucose 90 mg/dL (83-110); Potassium 4.5 mmol/L (3.5-5.1); Sodium 137 mmol/L (136-145)
[2019-08-16] MEDS ORDERED: cefTRIAXone\\ROCEPHIN 1 GM in Sodium Chloride 0.9% 100 ML IVPB SCH ×2 (15:00→15:15)
[2019-08-16] MEDS: cefTRIAXone\\ROCEPHIN 1 GM in Sodium Chloride 0.9% 100 ML IVPB SCH (16:14)
[2019-08-16] MEDS ORDERED: Atorvastatin Calcium 10 MG TAB PO SCH (21:00)
[2019-08-16] MEDS ORDERED: Mirtazapine 30 MG Soltab PO SCH (21:00)
[2019-08-17 08:22] VITALS: BP 101/66; TEMP 98.2
[2019-08-17 08:29] LABS: Anion Gap 9 mmol/L (10-20); BUN (Urea Nitrogen) 23 mg/dL (8.4-25.7); Calc. Creatinine Clearance 21 mL/min (70-130); Calcium 8.5 mg/dL (7.8-10.44); Carbon Dioxide 29 mmol/L (23-31); Chloride 105 mmol/L (98-107); Estimated GFR-MDRD 22; Glucose 78 mg/dL (83-110); Potassium 4.1 mmol/L (3.5-5.1); Sodium 139 mmol/L (136-145)
[2019-08-17] MEDS: Albumin 25% 25 GM/100 ML BOT IVPB SCH ×2 (08:36→15:25)
[2019-08-17] MEDS ORDERED: Folic Acid 1 MG TAB PO SCH (09:00)
[2019-08-17] MEDS ORDERED: Magnesium Oxide 400 MG TAB PO SCH (09:00)
[2019-08-17] MEDS ORDERED: Multivit, Therapeutic 1 TAB PO SCH (09:00)
[2019-08-17] MEDS ORDERED: Cyanocobalamin (Vitamin B-12) 1,000 MCG TAB PO SCH (09:00)
[2019-08-17] MEDS ORDERED: Thiamine 100 MG TAB PO SCH (09:00)
--- NOTE | 2019-08-19 12:07 | DIS ---
DATE OF ADMISSION: 08/16/2019 DATE OF DISCHARGE: 08/17/2019 DISCHARGE DIAGNOSES: 1. Acute metabolic encephalopathy. 2. Abdominal ascites. 3. Acute kidney injury. 4. Liver cirrhosis secondary to alcohol use. 5. Acute on chronic decompensated liver failure. 6. Severe protein calorie malnutrition. HOSPITAL COURSE: The patient is a 73-year-old male who initially presented to the hospital with abdominal tightness. He at this time underwent a CT abdomen and pelvis, which indicated significant ascites, cirrhotic appearing liver, and had some bilateral pleural effusion. At this time, he underwent a paracentesis and 3 L of fluid was removed. He was given a couple of days of albumin given his poor nutrition status. The patient at this time was given bouts of albumin, he did well. His creatinine was elevated at 3, which is greater than his baseline. He was hydrated gently. The patient's family states that he has been eating well since after his paracentesis. The patient's family have initiated hospice, I believe this is appropriate given his severe deconditioning. He appears very frail and severely malnourished and this has been an ongoing process. The patient's creatinine did improve a little bit 3.3. The patient wants to go home. I will discharge him home with hospice. HOME MEDICATIONS: 1. Mirtazapine 30 mg at bedtime. 2. Protonix 40 mg daily. 3. Multivitamin one daily. 4. Thiamine 100 mg daily. 5. Atorvastatin 10 mg daily. 6. Baclofen as needed. 7. Folic acid one p.o. daily. 8. Magnesium daily 400 mg. PHYSICAL EXAMINATION: VITAL SIGNS: Temperature 98.2, pulse 94, respirations 16, 99% on room air, blood pressure 106/66. GENERAL: He is awake, alert, and oriented x2. Does not appear in any distress. Again, the patient appears very cachectic with sunken eyes and appears to be significantly protein-calorie malnourished. ABDOMEN: Soft and nontender. Still has mild distention, however improved. LUNGS: Clear to auscultation. No rhonchi or wheezes noted. CV: S1 and S2 present. No murmurs, rubs, or gallops. I did recommend a therapeutic paracentesis as needed for this patient since he is unable to tolerate any diuretics. The patient has been getting better and has been eating; however, his albumin was 1.5 on admission. I have encouraged the family to call Dr. Peratla's office on Monday to get a script for as needed paracentesis as an outpatient. The patient again will be discharged home with hospice and I have asked him to follow up with his primary care. Job ID: [id number]
--- NOTE | 2019-08-20 07:27 | PQF ---
JORGE CANALES AUTHOR DUKE LI [id number] CLINICAL DOCUMENTATION CLARIFICATION FORM: POST DISCHARGE Addendum to original discharge summary date: ____ Late entry note date: __ DATE: 08/20/2019 ATTN:DUKE LI Please exercise your independent, professional judgment in responding to the clarification form. Clinical indicators are provided on the bottom of this form for your review Please check appropriate box(s): [ x ] Acute on chronic liver failure due to alcohol use [ ] Acute on chronic liver failure not due to alcohol use [ ] Other diagnosis [ ] Unable to determine For continuity of documentation, please document condition throughout progress notes and discharge summary. Thank You. CLINICAL INDICATORS - SIGNS / SYMPTOMS / LABS - Liver cirrhosis secondary to alcohol use- DS, 08/17, DUKE LI MD - Acute on chronic decompensated liver failure- DS, 08/17, DUKE LI MD - Significant ascites, cirrhotic appearing liver-DS, 08/17, DUKE LI MD - Abdominal ascites- DS, 08/17, DUKE LI MD - Hx of cirrhosis sec to alcohol abuse- H&P, 08/15, , DUKE LI MD RISK FACTORS - Acute metabolic encephalopathy- H&P, 08/15, , DUKE LI MD - Lactic acidosis- H&P, 08/15, JEN KARISHMA MD TREATMENTS: - Lactulose.PO- NOV, 08/15 - Sodium chloride.IV- NOV, 08/15 (This form is maintained as a part of the permanent medical record) 2014 [employer], [employer]. All Rights Reserved Yessica Waters [not provided] [not provided] MTDD
== END 2019-08-17 19:05 | disposition hospice, home (50) | DRG 432 ==
LOC: ERS 11:23 → T4-A 18:35 → INTOOBSV 18:35 → OBSVTOIN 08-16 16:24
PROVIDERS: ADMIT Internal Medicine; ATTEND Emergency Medicine
PROC: 0W9G3ZZ Drainage of Peritoneal Cavity, Percutaneous Approach (ICD-10-PCS; principal; 2019-08-15)
DX: K70.40 Alcoholic hepatic failure without coma (principal); G93.41 Metabolic encephalopathy; E43 Unspecified severe protein-calorie malnutrition; N17.9 Acute kidney failure, unspecified; R64 Cachexia; Z68.1 Body mass index [BMI] 19.9 or less, adult; E87.2 Acidosis; E03.9 Hypothyroidism, unspecified; J44.9 Chronic obstructive pulmonary disease, unspecified; D50.9 Iron deficiency anemia, unspecified; N40.0 Benign prostatic hyperplasia without lower urinary tract symptoms; F10.10 Alcohol abuse, uncomplicated; F17.210 Nicotine dependence, cigarettes, uncomplicated; K70.31 Alcoholic cirrhosis of liver with ascites
CPT/HCPCS: 36415; 49083; 51701; 74176; 80048; 80053; 81003; 82042; 82140; 82330; 82803; 83605; 83690; 84484; 85025; 85060; 85610; 85730; 89051; 96360; 96361; J0696; J3490; P9047